=== PATIENT | male | born 1985 | race Caucasian/White ===

== ENCOUNTER 2018-01-28 12:07 | Emergency (ER) | payer SELFPAY ==
[2018-01-28] MEDS ORDERED: SMZ./TMP. 800/160 MG TABLET ONE (12:51)
[2018-01-28] MEDS ORDERED: CLINDAMYCIN HCL 150 MG CAP ONE (12:51)
--- NOTE | 2018-01-28 12:56 | EDPHYS ---
Physician Documentation [facility] Name: Milton Alfaro Jr Age: 32 yrs Sex: Male : 1985 Arrival Date: 01/28/2018 Time: 12:10 Bed 15 Private MD: None, None ED Physician Tereso Ge HPI: 01/28 12:43 This 32 yrs old Male presents to ER via Ambulatory with complaints of Eye kav Swelling. 12:43 to the left eye, caused by an unknown mechanism, "...recent exposure to impetigo". kav Onset: The symptoms/episode began/occurred acutely, 1 day(s) ago. Aggravated by opening eye, rubbing, Light sensitive Alleviated by nothing. Associated signs and symptoms: Pertinent positives: None. Patient does not utilize any form of vision correction. Severity of symptoms: At their worst the symptoms were moderate just prior to arrival, in the emergency department the symptoms are unchanged. The patient has not experienced similar symptoms in the past. The patient has not recently seen a physician. pt presents with chief c/o acute onset of left periorbital area . 12:51 No proptosis, normal vision, normal pupil reflexes, no conjunctival injection, no cells kav and flare, no limitation or pain on eye movement, no chemosis, no papilledema. Historical: - Allergies: 12:32 No Known Allergies; aj - Home Meds: 12:32 None [Active]; aj - PMHx: 12:32 None; aj - PSHx: 12:32 None; aj - Immunization history:: Last tetanus immunization: up to date. - Social history:: Smoking status: Patient/guardian denies using tobacco. - Family history:: not pertinent. - Ebola Screening: : No symptoms or risks identified at this time. - Hospitalizations: : No recent hospitalization is reported. - History obtained from: significant other. ROS: 12:48 Constitutional: Negative for fever, chills, and weight loss, Eyes: Negative for injury, kav pain, redness, and discharge, ENT: Negative for injury, pain, and discharge, Neck: Negative for injury, pain, and swelling, Cardiovascular: Negative for chest pain, palpitations, and edema, Respiratory: Negative for shortness of breath, cough, wheezing, and pleuritic chest pain, Abdomen/GI: Negative for abdominal pain, nausea, vomiting, diarrhea, and constipation, Back: Negative for injury and pain, : Negative for injury, bleeding, discharge, and swelling, MS/Extremity: Negative for injury and deformity, Neuro: Negative for headache, weakness, numbness, tingling, and seizure, Psych: Negative for depression, anxiety, suicide ideation, homicidal ideation, and hallucinations, Allergy/Immunology: Negative for hives, rash, and allergies, Endocrine: Negative for neck swelling, polydipsia, polyuria, polyphagia, and marked weight changes, Hematologic/Lymphatic: Negative for swollen nodes, abnormal bleeding, and unusual bruising. 12:48 Skin: Positive for erythema, swelling. Exam: 12:48 Visual Acuity: Visual acuity is within normal limits. kav 12:48 Constitutional: This is a well developed, well nourished patient who is awake, alert, and in no acute distress. Head/Face: Normocephalic, atraumatic. Eyes: Pupils equal round and reactive to light, extra-ocular motions intact. Lids and lashes normal. Conjunctiva and sclera are non-icteric and not injected. Cornea within normal limits. Periorbital areas with no swelling, redness, or edema. ENT: Nares patent. No nasal discharge, no septal abnormalities noted. Tympanic membranes are normal and external auditory canals are clear. Oropharynx with no redness, swelling, or masses, exudates, or evidence of obstruction, uvula midline. Mucous membranes moist. Neck: Trachea midline, no thyromegaly or masses palpated, and no cervical lymphadenopathy. Supple, full range of motion without nuchal rigidity, or vertebral point tenderness. No Meningismus. Chest/axilla: Normal chest wall appearance and motion. Nontender with no deformity. No lesions are appreciated. Cardiovascular: Regular rate and rhythm with a normal S1 and S2. No gallops, murmurs, or rubs. Normal PMI, no JVD. No pulse deficits. Respiratory: Lungs have equal breath sounds bilaterally, clear to auscultation and percussion. No rales, rhonchi or wheezes noted. No increased work of breathing, no retractions or nasal flaring. Abdomen/GI: Soft, non-tender, with normal bowel sounds. No distension or tympany. No guarding or rebound. No evidence of tenderness throughout. Back: No spinal tenderness. No costovertebral tenderness. Full range of motion. Male : Normal genitalia with no discharge or lesions. MS/ Extremity: Pulses equal, no cyanosis. Neurovascular intact. Full, normal range of motion. Neuro: Awake and alert, GCS 15, oriented to person, place, time, and situation. Cranial nerves II-XII grossly intact. Motor strength 5/5 in all extremities. Sensory grossly intact. Cerebellar exam normal. Normal gait. Psych: Awake, alert, with orientation to person, place and time. Behavior, mood, and affect are within normal limits. 12:48 Skin: cellulitis, that is mild, irregular. Vital Signs: 12:32 BP 120 / 84; Pulse 80; Resp 16; Temp 98.0; Pulse Ox 99% on R/A; Weight 90.72 kg; Height aj 5 ft. 9 in. (175.26 cm); 12:32 Body Mass Index 29.53 (90.72 kg, 175.26 cm) aj MDM: 12:35 Medical screening is not applicable. [facility] 12:48 Data reviewed: vital signs, nurses notes. [facility] 01/28 13:21 Order name: Ice pack; Complete Time: 13:21 [facility] Administered Medications: 12:52 Drug: Bactrim (160 mg-800 mg (DS) 1 tablet Route: PO; [facility] 13:20 Follow up: Response: No adverse reaction [facility] 12:52 Drug: Clindamycin 300 mg Route: PO; [facility] 13:20 Follow up: Response: No adverse reaction [facility] 13:20 Drug: ERYTHromycin Ointment 1 application Route: Ophthalmic; Site: left eye; [facility] 13:20 Follow up: Response: Medication administered at discharge. [facility] Disposition: 22:09 Co-signature as Attending Physician, Tereso Ge MD I agree with the assessment and kdr plan of care. Disposition: 01/28/18 12:55 Discharged to Home. Impression: Unspecified inflammation of eyelid. - Condition is Stable. - Discharge Instructions: Periorbital Cellulitis. - Prescriptions for Augmentin 875- 125 mg Oral Tablet - take 1 tablet by ORAL route every 12 hours for 10 days; 20 tablet. Erythromycin 5 mg/gram (0.5 %) Ophthalmic Ointment - apply 1 centimeter by OPHTHALMIC route 2-3 times daily for 7 days; 1 tube. - Medication Reconciliation Form, Thank You Letter, Antibiotic Education, Prescription Opioid Use form. - Follow up: Private Physician; When: 5 - 6 days; Reason: If symptoms return, Recheck today's complaints, Continuance of care, Re-evaluation by your physician. - Problem is new. - Symptoms have improved. - Notes: wash tub/shower with 1:10 bleach:water solution. wash all linen and towels in hot water with bleach f/u with opthalmalogist in 2-3 days if s/s do not improved Signatures: Kiara Melgar, RN RN Tereso Mujica MD MD kdr Bonnie Lozada, SALES ORDER ADMINISTRATOR SALES ORDER ADMINISTRATOR Olivia Burton RN RN jl7 Corrections: (The following items were deleted from the chart) 13:23 12:55 01/28/2018 12:55 Discharged to Home. Impression: Unspecified inflammation of jl7 eyelid. Condition is Stable. Forms are Medication Reconciliation Form, Thank You Letter, Antibiotic Education, Prescription Opioid Use. Follow up: Private Physician; When: 5 - 6 days; Reason: If symptoms return, Recheck today's complaints, Continuance of care, Re-evaluation by your physician. Problem is new. Symptoms have improved. kayokasta
--- NOTE | 2018-01-28 12:56 | ER ---
Nurse's Notes [facility] Name: Milton Alfaro Jr Age: 32 yrs Sex: Male : 1985 Arrival Date: 01/28/2018 Time: 12:10 Bed 15 Private MD: None, None Diagnosis: Unspecified inflammation of eyelid Presentation: 01/28 12:30 Presenting complaint: Patient states: Left peroborbital redness and inflammation that aj started yesterday. Patient reports starting Bactrim yesterday and taking 2 doses. Transition of care: patient was not received from another setting of care. Onset of symptoms was January 28, 2018. Care prior to arrival: None. 12:30 Method Of Arrival: Ambulatory aj 12:30 Acuity: SANDY 3 aj 12:30 Risk Assessment: Do you want to hurt yourself or someone else? Patient reports no jl7 desire to harm self or others. Initial Sepsis Screen: Does the patient meet any 2 criteria? No. Patient's initial sepsis screen is negative. Does the patient have a suspected source of infection? No. Patient's initial sepsis screen is negative. Triage Assessment: 12:32 General: Appears in no apparent distress. comfortable, Behavior is calm, cooperative, aj appropriate for age. Pain: Complains of pain in left eye. EENT: Lid(s) swelling to left lower and upper lid with redness. Neuro: Level of Consciousness is awake, alert, obeys commands, Oriented to person, place, time, situation, Appropriate for age. Respiratory: Airway is patent Respiratory effort is even, unlabored, Respiratory pattern is regular, symmetrical. Derm: Skin is intact, is healthy with good turgor, Skin is pink, warm \T\ dry. normal. Historical: - Allergies: 12:32 No Known Allergies; aj - Home Meds: 12:32 None [Active]; aj - PMHx: 12:32 None; aj - PSHx: 12:32 None; aj - Immunization history:: Last tetanus immunization: up to date. - Social history:: Smoking status: Patient/guardian denies using tobacco. - Family history:: not pertinent. - Ebola Screening: : No symptoms or risks identified at this time. - Hospitalizations: : No recent hospitalization is reported. - History obtained from: significant other. Screenin:40 Abuse screen: Denies threats or abuse. Denies injuries from another. Nutritional jl7 screening: No deficits noted. Tuberculosis screening: No symptoms or risk factors identified. Fall Risk None identified. Assessment: 12:40 General: Appears in no apparent distress. uncomfortable, Behavior is calm, cooperative, jl7 appropriate for age. Pain: Complains of pain in left eye Pain currently is 10 out of 10 on a pain scale. Neuro: Level of Consciousness is awake, alert, obeys commands, Oriented to person, place, time, situation. Cardiovascular: Patient's skin is warm and dry. Respiratory: Airway is patent Respiratory effort is even, unlabored, Respiratory pattern is regular, symmetrical. EENT: Eyes Swelling noted to left eye. Superficial abrasions noted around face.. Derm: Skin is pink, warm \T\ dry. 13:21 Reassessment: Ice pack applied to left eye. jl7 Vital Signs: 12:32 BP 120 / 84; Pulse 80; Resp 16; Temp 98.0; Pulse Ox 99% on R/A; Weight 90.72 kg; Height aj 5 ft. 9 in. (175.26 cm); 12:32 Body Mass Index 29.53 (90.72 kg, 175.26 cm) aj ED Course: 12:10 Patient arrived in ED. mr 12:11 None, None is Private Physician. mr 12:31 Triage completed. aj 12:32 Arm band placed on left wrist. Patient placed in an exam room. aj 12:35 Bonnie Lozada FNP is PHCP. kav 12:35 Tereso Ge MD is Attending Physician. kav 12:40 Patient has correct armband on for positive identification. Bed in low position. Call jl7 light in reach. Side rails up X 1. 12:40 No provider procedures requiring assistance completed. Patient did not have IV access jl7 during this emergency room visit. 12:43 Olivia Arnold RN is Primary Nurse. jl7 Administered Medications: 12:52 Drug: Bactrim (160 mg-800 mg (DS) 1 tablet Route: PO; jl7 13:20 Follow up: Response: No adverse reaction jl7 12:52 Drug: Clindamycin 300 mg Route: PO; jl7 13:20 Follow up: Response: No adverse reaction jl7 13:20 Drug: ERYTHromycin Ointment 1 application Route: Ophthalmic; Site: left eye; jl7 13:20 Follow up: Response: Medication administered at discharge. jl7 Outcome: 12:55 Discharge ordered by . hernando 13:21 Discharged to home ambulatory. jl7 13:21 Condition: stable 13:21 Discharge instructions given to patient, Instructed on discharge instructions, follow up and referral plans. medication usage, Demonstrated understanding of instructions, follow-up care, medications, Prescriptions given X 2. 13:23 Patient left the ED. jl7 Signatures: Kiara Melgar, RN Bonnie Nash, LOOP TACKER LOOP TACKER Renae Lui Jahala, RN RN jl7
[2018-01-28] MEDS ORDERED: ERYTHROMYCIN 3.5GM OPTH OINT EACH EYE ONE (13:00)
== END 2018-01-28 13:23 | disposition home or self-care (01) ==
LOC: ER 12:07
DX: H01.9 Unspecified inflammation of eyelid (principal)
CPT/HCPCS: 99283

== ENCOUNTER 2018-02-23 12:21 | Emergency (ER) | payer SELFPAY ==
--- NOTE | 2018-02-23 13:49 | ER ---
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 Areas are "everywhere.". Transition of care: patient was not received from another setting of care. Onset of symptoms was February 20, 2018. Care prior to arrival: None. 12:32 Method Of Arrival: Ambulatory sv 12:32 Acuity: SANDY 4 sv Triage Assessment: 12:32 General: Appears uncomfortable, Behavior is calm, cooperative, appropriate for age. sv Pain: Complains of pain in "all over" Pain currently is 2 out of 10 on a pain scale. Quality of pain is described as itchy. Neuro: Level of Consciousness is awake, alert, obeys commands, Oriented to person, place, time, situation, Moves all extremities. Full function Gait is steady, Speech is normal. Respiratory: Respiratory effort is even, unlabored, Respiratory pattern is regular, symmetrical. GI: No signs and/or symptoms were reported involving the gastrointestinal system. : No signs and/or symptoms were reported regarding the genitourinary system. Derm: Reports itching, poison tex "all over my body". Musculoskeletal: Range of motion: intact in all extremities. Historical: - Allergies: 12:33 No Known Allergies; sv - Home Meds: 12:33 None [Active]; sv - PMHx: 12:33 None; sv - PSHx: 12:33 None; sv - Immunization history:: Adult Immunizations up to date. - Social history:: Smoking status: Patient/guardian denies using tobacco. - Ebola Screening: : No symptoms or risks identified at this time. Screenin:31 Abuse screen: Denies threats or abuse. Denies injuries from another. Nutritional aj screening: No deficits noted. Tuberculosis screening: No symptoms or risk factors identified. Fall Risk None identified. Assessment: 13:31 General: Appears in no apparent distress. uncomfortable, Behavior is calm, cooperative, aj appropriate for age. Pain: Denies pain. Neuro: Level of Consciousness is awake, alert, obeys commands, Oriented to person, place, time, situation, Appropriate for age. Respiratory: Airway is patent Respiratory effort is even, unlabored, Respiratory pattern is regular, symmetrical. Derm: Skin is pink, warm \\T\\ dry. Rash noted that is itchy, red, on face, right arm and left arm. Vital Signs: 12:33 BP 104 / 72; Pulse 55; Resp 18; Temp 97.9(TE); Pulse Ox 100% on R/A; Weight 95.25 kg; sv Height 5 ft. 9 in. (175.26 cm); Pain 2/10; 12:33 Body Mass Index 31.01 (95.25 kg, 175.26 cm) sv ED Course: 12:24 Patient arrived in ED. rg4 12:33 Triage completed. sv 12:33 Arm band placed on left wrist. Patient placed in waiting room, Patient notified of wait sv time. 13:13 Martin Robertson MD is Attending Physician. gs 13:17 Kiara Melgar RN is Primary Nurse. aj 13:31 Patient has correct armband on for positive identification. aj 13:31 No provider procedures requiring assistance completed. aj Administered Medications: No medications were administered Outcome: 13:37 Medical screen evaluation completed per provider. Patient declined treatment. aj 13:37 Condition: good 13:37 Following a medical screening exam, the patient was provided information regarding alternative care sites and resources available per registration personnel. 13:48 Discharge ordered by . gs 13:57 Patient left the ED. aj Signatures: Lexus Byers RN RN sv Myers, Amanda, RN RN aj Garcia, Rubi rg4 Martin Robertson MD MD Corrections: (The following items were deleted from the chart) 12:35 12:32 Presenting complaint: Patient states: poison tex exposure started 2 days ago sv after cleaning [employer]. sv 12:37 12:33 Pulse 55bpm; Resp 18bpm; Pulse Ox 100% RA; Temp 97.9F Temporal; 95.25 kg; Height sv 5 ft. 9 in.; BMI: 31.0; Pain 2/10; sv 12:51 12:33 Arm band placed on left wrist. sv sv 12:56 12:32 Acuity: SANDY 3 sv sv
--- NOTE | 2018-02-23 13:49 | EDPHYS ---
Physician Documentation [facility] Name: Milton Alfaro Jr Age: 33 yrs Sex: Male : 1985 Arrival Date: 02/23/2018 Time: 12:24 Bed 12 Private MD: ED Physician Martin Robertson HPI: 02/23 13:45 This 33 yrs old Male presents to ER via Ambulatory with complaints of POISON gs BHARGAVI. 13:45 The rash is located on the dorsal aspect of right forearm. The rash is located on the gs dorsal aspect of left forearm. The rash can be described as papular. Onset: The symptoms/episode began/occurred 2 day(s) ago. Associated signs and symptoms: Pertinent positives: itching, Pertinent negatives: difficulty breathing, fever, swelling of lips, swelling of throat, swelling of tongue. Severity of symptoms: At their worst the symptoms were moderate in the emergency department the symptoms are unchanged. The patient has experienced similar episodes in the past, several times. Historical: - Allergies: 12:33 No Known Allergies; sv - Home Meds: 12:33 None [Active]; sv - PMHx: 12:33 None; sv - PSHx: 12:33 None; sv - Immunization history:: Adult Immunizations up to date. - Social history:: Smoking status: Patient/guardian denies using tobacco. - Ebola Screening: : No symptoms or risks identified at this time. ROS: 13:45 All other systems are negative. gs Exam: 13:45 Head/Face: Normocephalic, atraumatic. Eyes: Pupils equal round and reactive to light, gs extra-ocular motions intact. Lids and lashes normal. Conjunctiva and sclera are non-icteric and not injected. Cornea within normal limits. Periorbital areas with no swelling, redness, or edema. ENT: Nares patent. No nasal discharge, no septal abnormalities noted. Tympanic membranes are normal and external auditory canals are clear. Oropharynx with no redness, swelling, or masses, exudates, or evidence of obstruction, uvula midline. Mucous membranes moist. Neck: Trachea midline, no thyromegaly or masses palpated, and no cervical lymphadenopathy. Supple, full range of motion without nuchal rigidity, or vertebral point tenderness. No Meningismus. Chest/axilla: Normal chest wall appearance and motion. Nontender with no deformity. No lesions are appreciated. Cardiovascular: Regular rate and rhythm with a normal S1 and S2. No gallops, murmurs, or rubs. Normal PMI, no JVD. No pulse deficits. Respiratory: Lungs have equal breath sounds bilaterally, clear to auscultation and percussion. No rales, rhonchi or wheezes noted. No increased work of breathing, no retractions or nasal flaring. Abdomen/GI: Soft, non-tender, with normal bowel sounds. No distension or tympany. No guarding or rebound. No evidence of tenderness throughout. Back: No spinal tenderness. No costovertebral tenderness. Full range of motion. MS/ Extremity: Pulses equal, no cyanosis. Neurovascular intact. Full, normal range of motion. Neuro: Awake and alert, GCS 15, oriented to person, place, time, and situation. Cranial nerves II-XII grossly intact. Motor strength 5/5 in all extremities. Sensory grossly intact. Cerebellar exam normal. Normal gait. 13:45 Constitutional: The patient appears alert, awake. 13:45 Skin: rash a mild rash is noted, rash can be described as macular, papular, contact dermatitis, on the dorsal aspect of left forearm and dorsal aspect of right forearm, very mild. Vital Signs: 12:33 BP 104 / 72; Pulse 55; Resp 18; Temp 97.9(TE); Pulse Ox 100% on R/A; Weight 95.25 kg; sv Height 5 ft. 9 in. (175.26 cm); Pain 2/10; 12:33 Body Mass Index 31.01 (95.25 kg, 175.26 cm) MDM: 13:22 Patient medically screened. 13:45 Data reviewed: vital signs, nurses notes. gs Administered Medications: No medications were administered Disposition: 13:47 contact dermatitis. Disposition: 02/23/18 13:48 Discharged to Home. Impression: Encounter for screening, unspecified. - Condition is Stable. - Medication Reconciliation Form, Thank You Letter, Antibiotic Education, Prescription Opioid Use form. Signatures: Lexus Byers RN RN sv Myers, Amanda, RN RN aj Starr, Gregory, MD MD Corrections: (The following items were deleted from the chart) 13:57 13:48 02/23/2018 13:48 Discharged to Home. Impression: Encounter for screening, aj unspecified. Condition is Stable. Forms are Medication Reconciliation Form, Thank You Letter, Antibiotic Education, Prescription Opioid Use. gs
== END 2018-02-23 13:57 | disposition home or self-care (01) ==
LOC: ER 12:21
DX: L23.7 Allergic contact dermatitis due to plants, except food (principal)
CPT/HCPCS: 99281

== ENCOUNTER 2018-08-04 13:53 | Inpatient (IN) | payer SELFPAY ==
--- OUTSIDE RECORDS SUMMARY | 2018-08-04 13:57 | XMS REPORT ---
:1985 Author Organization [facility] Address [address] [place] [address] Dr. Wesley [address] [place] [id number] Care Team Providers Name Role Phone Unavailable Unavailable Unavailable Problems This patient has no known problems. Allergies, Adverse Reactions, Alerts This patient has no known allergies or adverse reactions. Medications This patient has no known medications.
[2018-08-04] MEDS ORDERED: MORPHINE 4 MG/ML SYR ONE (15:47)
[2018-08-04] MEDS ORDERED: ONDANSETRON 4 MG/2 ML VIAL ONE (15:47)
[2018-08-04 16:05] LABS: Absolute Lymphocytes (CBC) 0.9 K/uL (0.7-4.9); Absolute Monocytes 1.2 K/uL (0.1-1.3); Absolute Neutrophil 12.6 K/uL (1.8-8.0); Basophils % 0.4 % (0-1.3); Hematocrit 40.5 % (39.6-49.0); Lymphocytes % 5.7 % (15.3-44.8); MCH 29.6 pg (27.0-35.0); MCV 86.6 fL (80-100); MPV 9.7 fL (7.6-11.3); Monocytes % 8.1 % (3.3-12.3); RBC Red Blood Cell Count 4.68 M/uL (4.33-5.43)
[2018-08-04] MEDS ORDERED: KETOROLAC 30 MG/ML INJ ONE (16:55)
[2018-08-04 19:16] LABS: Potassium 4.1 mmol/L (3.5-5.1)
--- NOTE | 2018-08-04 20:28 | RAD REPORT ---
EXAM DESCRIPTION: CT - Forearm Right W Con - 08/04/2018 7:58 pm CLINICAL HISTORY: Right arm pain and swelling COMPARISON: None. TECHNIQUE: Computed axial tomography of right forearm obtained. 50 cc Isovue-300 administered intrav enously. All CT scans are performed using dose optimization technique as appropriate and may include automated exposure control or mA/KV adjustment according to patient size. FINDINGS: An 18 millimeter low-density fluid collection is present within an the ulnar aspect of the distal forearm within the subcutaneous tissues. The fluid collection extends proximally within the u lnar soft tissues measuring approximately 50 x 6 millimeters. This all likely represents an abscess. There is extensive edema within the subcutaneous tissues compatible with a cellulitis. No bony destructive lesion is seen. IMPRESSION: 18 millimeter abscess within the ulnar subcutaneous tissues of the distal forearm. An ab scess tract extends proximally within the subcutaneous tissues measuring 50 x 6 millimeters
--- NOTE | 2018-08-04 20:46 | EDPHYS ---
Physician Documentation [facility] Name: Milton Alfaro Jr Age: 33 yrs Sex: Male : 1985 Arrival Date: 08/04/2018 Time: 13:53 Bed 27 Private MD: ED Physician Aurelio Antonio HPI: 08/04 15:05 This 33 yrs old Male presents to ER via Ambulatory with complaints of Abscess.jmm 15:05 the patient presents with a swollen area of the right arm. Onset: The symptoms/episode jmm began/occurred gradually, 3 day(s) ago. Possible cause(s): unknown. Associated signs and symptoms: Pertinent positives: drainage, Pertinent negatives: fever. This is a 33 year old male with no chronic medical conditions that presents tot he ED with with forearm swelling. Patient states having drainage. Patient has taken oral antibiotics a friend of his gave him for 2 days. Denies fever. . Historical: - Allergies: 14:09 No Known Drug Allergies; tw2 - Home Meds: 14:09 None [Active]; tw2 - PMHx: 14:09 None; tw2 - PSHx: 14:09 None; tw2 - Immunization history:: Last tetanus immunization: up to date. - Social history:: Smoking status: Patient/guardian denies using tobacco, Patient uses street drugs, marijuana. - Ebola Screening: : Patient denies travel to an Ebola-affected area in the 21 days before illness onset. ROS: 15:05 Constitutional: Negative for fever, chills, and weight loss, Eyes: Negative for injury, jmm pain, redness, and discharge, ENT: Negative for injury, pain, and discharge, Neck: Negative for injury, pain, and swelling, Cardiovascular: Negative for chest pain, palpitations, and edema, Respiratory: Negative for shortness of breath, cough, wheezing, and pleuritic chest pain, Abdomen/GI: Negative for abdominal pain, nausea, vomiting, diarrhea, and constipation. 15:05 Skin: Positive for erythema. 15:05 All other systems are negative. Exam: 19:23 Constitutional: This is a well developed, well nourished patient who is awake, alert, jmm and in no acute distress. Head/Face: atraumatic. Eyes: EOMI, no conjunctival erythema appreciated ENT: Moist Mucus Membranes Neck: Trachea midline, Supple Chest/axilla: Normal chest wall appearance and motion. Cardiovascular: Regular rate and rhythm. No edema appreciated Respiratory: Normal respirations, no respiratory distress appreciated Abdomen/GI: Non distended, soft 19:23 Musculoskeletal/extremity: FROM appreciated to the right wrist, painful, full radial pulse, compartments are soft, NVI. 19:23 Skin: erythema and induration appreciated to the right forearm, worse distally, TTP. 19:23 Neuro: Orientation: is normal, Mentation: is normal, Memory: is normal, Gait: is steady. 19:23 Psych: Behavior/mood is pleasant, cooperative. Vital Signs: 14:08 BP 123 / 82; Pulse 94; Resp 18; Temp 97.8(TE); Pulse Ox 100% on R/A; Pain 10/10; tw2 16:24 BP 104 / 84; Pulse 78; Resp 18; Temp 98.7; Pulse Ox 100% on R/A; Pain 4/10; mg2 17:30 BP 110 / 65; Pulse 78; Resp 18; Pulse Ox 100% on R/A; Pain 0/10; mg2 18:30 BP 111 / 65; Pulse 80; Resp 17; Temp 98.8(O); Pulse Ox 100% on R/A; Pain 0/10; mg2 20:23 BP 114 / 68; Pulse 80; Resp 18; Temp 98.8; Pulse Ox 100% on R/A; Pain 4/10; mg2 MDM: 15:05 Patient medically screened. [facility] 20:43 Data reviewed: vital signs, nurses notes. Counseling: I had a detailed discussion with [facility] the patient and/or guardian regarding: the historical points, exam findings, and any diagnostic results supporting the discharge/admit diagnosis, radiology results, the need for further work-up and treatment in the hospital. ED course: I discussed the patient with Dr. Serrano whom will consult on admission. I discussed the patient with Dr. Arriaza whom accepted admission. 08/04 15:11 Order name: CBC with Diff [facility] 08/04 15:11 Order name: BMP [facility] 08/04 15:11 Order name: Lactate [facility] 08/04 15:11 Order name: Procalcitonin [facility] 08/04 15:11 Order name: Blood Culture Adult (2) [facility] 08/04 16:07 Order name: CBC with Automated Diff; Complete Time: 16:09 EDMS 12 16:22 Order name: Lactate; Complete Time: 16:35 EDMS 08/04 16:34 Order name: Procalcitonin; Complete Time: 16:35 EDMS 08/04 19:16 Order name: Basic Metabolic Panel; Complete Time: 19:17 EDMS 08/04 20:29 Order name: CT; Complete Time: 20:29 EDMS 08/04 15:11 Order name: Saline Lock; Complete Time: 15:55 [facility] Administered Medications: 15:54 Drug: Zofran 4 mg Route: IVP; Site: left antecubital; mg2 16:40 Follow up: Response: No adverse reaction; Marked relief of symptoms mg2 15:55 Drug: morphine 4 mg Route: IVP; Site: left antecubital; mg2 16:40 Follow up: Response: No adverse reaction; Pain is decreased mg2 16:49 Drug: TORadol 30 mg Route: IVP; Site: left antecubital; mg2 18:48 Follow up: Response: No adverse reaction; Marked relief of symptoms mg2 20:55 Drug: vancoMYCIN 1 grams Route: IVPB; Infused Over: 2 hrs; Site: left antecubital; mg2 21:12 Follow up: Response: No adverse reaction; IV Status: Infusion continued upon admission mg2 20:56 Drug: fentaNYL (PF) 50 mcg Route: IVP; Site: left antecubital; mg2 21:11 Follow up: Response: No adverse reaction; Marked relief of symptoms mg2 Disposition: 08/05 07:46 Co-signature as Attending Physician, Aurelio Antonio MD. rn Disposition: 08/04/18 20:45 Hospitalization ordered by Krystyna Arriaza for Observation. Preliminary diagnosis are Forearm Abscess, Forearm Cellulitis. - Bed requested for Telemetry/MedSurg (observation). - Status is Observation. mg2 - Condition is Stable. - Problem is new. - Symptoms are unchanged. UTI on Admission? No Signatures: Dispatcher [employer] [facility] Wanda Arreguin RN RN mw Mickail, Joel, PA PA jmm Nieto, Roman, MD MD rn Wise, Tara, RN RN tw2 Miguel Reyes RN RN mg2 Corrections: (The following items were deleted from the chart) 08/04 20:51 20:45 Hospitalization Ordered by Krystyna Arriaza MD for Observation. Preliminary mw diagnosis is Forearm Abscess; Forearm Cellulitis. Bed requested for Telemetry/MedSurg (observation). Status is Observation. Condition is Stable. Problem is new. Symptoms are unchanged. UTI on Admission? No. jmm 21:41 20:51 08/04/2018 20:45 Hospitalization Ordered by Krystyna Arriaza MD for Observation. mg2 Preliminary diagnosis is Forearm Abscess; Forearm Cellulitis. Bed requested for Telemetry/MedSurg (observation). Status is Observation. Condition is Stable. Problem is new. Symptoms are unchanged. UTI on Admission? No. mw
--- NOTE | 2018-08-04 20:46 | ER ---
Nurse's Notes [facility] Name: Milton Alfaro Jr Age: 33 yrs Sex: Male : 1985 Arrival Date: 08/04/2018 Time: 13:53 Bed 27 Private MD: Diagnosis: Forearm Abscess;Forearm Cellulitis Presentation: 08/04 14:07 Presenting complaint: Patient states: i have this abscess 3 days ago on my right wrist, tw2 i had some bactrim so i took that but it aint better, the antibiotics made it bust open and green shit came out. Transition of care: patient was not received from another setting of care. Onset of symptoms was August 04, 2018. Risk Assessment: Do you want to hurt yourself or someone else? Patient reports no desire to harm self or others. Initial Sepsis Screen: Does the patient meet any 2 criteria? No. Patient's initial sepsis screen is negative. Does the patient have a suspected source of infection? Yes: Skin breakdown/wound. Care prior to arrival: None. 14:07 Method Of Arrival: Ambulatory tw2 14:07 Acuity: SANDY 3 tw2 Historical: - Allergies: 14:09 No Known Drug Allergies; tw2 - Home Meds: 14:09 None [Active]; tw2 - PMHx: 14:09 None; tw2 - PSHx: 14:09 None; tw2 - Immunization history:: Last tetanus immunization: up to date. - Social history:: Smoking status: Patient/guardian denies using tobacco, Patient uses street drugs, marijuana. - Ebola Screening: : Patient denies travel to an Ebola-affected area in the 21 days before illness onset. Screenin:22 Abuse screen: Denies threats or abuse. Denies injuries from another. Nutritional mg2 screening: No deficits noted. Tuberculosis screening: No symptoms or risk factors identified. Fall Risk IV access (20 points). Assessment: 16:21 General: Appears in no apparent distress. uncomfortable, Behavior is calm, cooperative. mg2 Pain: Complains of pain in right arm Pain currently is 5 out of 10 on a pain scale. Quality of pain is described as aching, Pain began gradually, 2-3 days ago. Is intermittent. Neuro: Level of Consciousness is awake, alert, obeys commands, Oriented to person, place, time, situation. Cardiovascular: Capillary refill < 3 seconds Patient's skin is warm and dry. Respiratory: Airway is patent Respiratory effort is even, unlabored, Respiratory pattern is regular, symmetrical. GI: No signs and/or symptoms were reported involving the gastrointestinal system. : No signs and/or symptoms were reported regarding the genitourinary system. EENT: No signs and/or symptoms were reported regarding the EENT system. Derm: Abscess located on right arm is golf ball sized, has no drainage, is hot to touch, is red, is raised. Musculoskeletal: Circulation, motion, and sensation intact. Capillary refill < 3 seconds, Swelling present in right arm. 19:50 Reassessment: Patient appears in no apparent distress at this time. patient sent to ct mg2 scan. Vital Signs: 14:08 BP 123 / 82; Pulse 94; Resp 18; Temp 97.8(TE); Pulse Ox 100% on R/A; Pain 10/10; tw2 16:24 BP 104 / 84; Pulse 78; Resp 18; Temp 98.7; Pulse Ox 100% on R/A; Pain 4/10; mg2 17:30 BP 110 / 65; Pulse 78; Resp 18; Pulse Ox 100% on R/A; Pain 0/10; mg2 18:30 BP 111 / 65; Pulse 80; Resp 17; Temp 98.8(O); Pulse Ox 100% on R/A; Pain 0/10; mg2 20:23 BP 114 / 68; Pulse 80; Resp 18; Temp 98.8; Pulse Ox 100% on R/A; Pain 4/10; mg2 ED Course: 13:53 Patient arrived in ED. as 14:08 Triage completed. tw2 14:08 Arm band placed on. tw2 14:58 Alfonzo Ford PA is PHCP. [facility] 14:58 Aurelio Antonio MD is Attending Physician. [facility] 15:19 Miguel Reyes RN is Primary Nurse. mg2 16:23 Patient has correct armband on for positive identification. Pulse ox on. NIBP on. mg2 16:23 No provider procedures requiring assistance completed. Inserted saline lock: 20 gauge mg2 in left antecubital area, using aseptic technique. Blood collected. 18:21 Radiology exam delayed due to lab results not completed at this time. (BUN/Creatinine). mw3 18:31 Radiology exam delayed due to lab results not completed at this time. (BUN/Creatinine). mw3 19:15 Radiology exam delayed due to lab results not completed at this time. (BUN/Creatinine). mw3 19:[address] nj 19:58 CT completed. Patient tolerated procedure well. Patient moved back from CT. nj 20:44 Krystyna Arriaza MD is Hospitalizing Provider. m 21:10 Patient admitted, IV remains in place. mg2 Administered Medications: 15:54 Drug: Zofran 4 mg Route: IVP; Site: left antecubital; mg2 16:40 Follow up: Response: No adverse reaction; Marked relief of symptoms mg2 15:55 Drug: morphine 4 mg Route: IVP; Site: left antecubital; mg2 16:40 Follow up: Response: No adverse reaction; Pain is decreased mg2 16:49 Drug: TORadol 30 mg Route: IVP; Site: left antecubital; mg2 18:48 Follow up: Response: No adverse reaction; Marked relief of symptoms mg2 20:55 Drug: vancoMYCIN 1 grams Route: IVPB; Infused Over: 2 hrs; Site: left antecubital; mg2 21:12 Follow up: Response: No adverse reaction; IV Status: Infusion continued upon admission mg2 20:56 Drug: fentaNYL (PF) 50 mcg Route: IVP; Site: left antecubital; mg2 21:11 Follow up: Response: No adverse reaction; Marked relief of symptoms mg2 Outcome: 20:45 Decision to Hospitalize by Provider. [facility] 21:10 Admitted to Med/surg accompanied by tech, via wheelchair, room 204, with chart, Report mg2 called to YANA Ndiaye 21:10 Condition: stable 21:10 Instructed on the need for admit. 21:41 Patient left the ED. mg2 Signatures: Alfonzo Ford PA PA jmm Martinez, Amelia as Wise, Tara, RN RN tw2 Sanjiv Goss Michele, RN RN mg2 Neris Rosenberg mw3 Corrections: (The following items were deleted from the chart) 21:01 20:23 BP 114 / 68; Pulse 80bpm; Resp 18bpm; Pulse Ox 100% RA; Pain 4/10; mg2 mg2
[2018-08-04] MEDS ORDERED: VANCOMYCIN 1 GM/250 ML BAG ONE (20:48)
[2018-08-04] MEDS ORDERED: FENTANYL CITR 100 MCG/2 ML ONE (20:53)
[2018-08-04] MEDS: NA CHLORIDE 0.9% 1,000 ML IV SCH (22:04)
[2018-08-04] MEDS: MORPHINE 4 MG/ML SYR IV PRN (22:09)
[2018-08-04] MEDS ORDERED: CHLORHEXIDINE GLUCO 4% 120 ML TOP SCH (23:45)
[2018-08-05] MEDS ORDERED: VANCOMYCIN 750 MG in NA CHLORIDE 0.9% 150 ML IVPB ONE (00:15)
[2018-08-05] MEDS ORDERED: VANCOMYCIN 1 GM/VIAL ONE (00:32)
[2018-08-05] MEDS ORDERED: NA CHLORIDE 0.9% 250 ML ONE (00:38)
[2018-08-05] MEDS: TEMAZEPAM 15 MG CAP PO PRN (00:47)
[2018-08-05 02:01] LABS: Barbiturates NEGATIVE (NEGATIVE); Benzodiazepines NEGATIVE (NEGATIVE); Cocaine NEGATIVE (NEGATIVE); METHAMPHETAM POSITIVE (NEGATIVE); Methadone NEGATIVE (NEGATIVE); Opiates POSITIVE (NEGATIVE); Phencyclidine NEGATIVE (NEGATIVE); THC Cannibis POSITIVE (NEGATIVE)
[2018-08-05 02:45] LABS: Urine Bacteria <20 /HPF (NONE SEEN); Urine Culture Reflex Order NOT NEEDED; Urine RBC NONE SEEN /HPF (NONE SEEN)
[2018-08-05 02:51] LABS: Urine Appearance CLEAR; Urine Bilirubin NEGATIVE (NEG); Urine Blood NEGATIVE (NEG); Urine Color YELLOW; Urine Glucose NEGATIVE (NEG); Urine Protein NEGATIVE (NEG); Urine Specific Gravity >=1.030 (1.005-1.030); Urine Urobilinogen 0.2 mg/dL (0.2-1.0); Urine pH 6.5 (5.0-7.0)
[2018-08-05] MEDS: MORPHINE 4 MG/ML SYR IV PRN ×2 (04:07→09:25)
[2018-08-05 05:27] LABS: Absolute Lymphocytes (CBC) 1.5 K/uL (0.7-4.9); Absolute Neutrophil 8.5 K/uL (1.8-8.0); Basophils % 0.6 % (0-1.3); Eosinophils % 5.5 % (0-4.4); Lymphocytes % 12.6 % (15.3-44.8); MCH 29.2 pg (27.0-35.0); MCV 86.2 fL (80-100); MPV 9.7 fL (7.6-11.3); Monocytes % 8.8 % (3.3-12.3); RBC Red Blood Cell Count 4.52 M/uL (4.33-5.43)
[2018-08-05 05:42] LABS: Potassium 4.3 mmol/L (3.5-5.1)
[2018-08-05] MEDS: INFLUENZA VACCINE (for 3y+) 0.5 ML DOSE IMVAC ONE ×2 (06:00→09:13)
[2018-08-05] MEDS: MUPIROCIN 2% OINT 22GM TUBE TOP SCH (09:15)
[2018-08-05] MEDS: NA CHLORIDE 0.9% 1,000 ML IV SCH (09:17)
--- NOTE | 2018-08-05 09:59 | P.HP ---
Certification for Inpatient Patient admitted to: Inpatient With expected LOS: >2 Midnights Patient will require the following post-hospital care: None Practitioner: I am a practitioner with admitting privileges, knowledge of patient current condition, hospital course, and medical plan of care. Services: Services provided to patient in accordance with Admission requirements found in Title 42 Section 412.3 of the Code of Federal Regulations Patient History Date of Service: 08/04/18 Reason for admission: Abscess of the hand/arm History of Present Illness: Patient is a 33-year-old gentleman who came into the hospital because he had an abscess on his right wrist. The abscess has been draining for over the last 24 hr but is totally stopped. His right arm is quite swollen. Her his came into the hospital for incision and debridement. The felt uncomfortable doing it in the emergency room so they contacted hand surgery. Plan to go to the OR in the morning. Patient has history of polysubstance abuse. Patient used to use intravenous heroin. patient had been on Bactrim the last couple of days. However he was not getting any relief and he came into the hospital. He denies any significant medical history. He has had prior treatment for staph infection. He said at that time it was MRSA. We will continue with IV vancomycin and may use clindamycin with antibiotics. Await culture results. Allergies No Known Allergies Allergy (Verified 08/04/18 22:02) Home Medications: NK [No Home Meds] 08/04/18 - Past Medical/Surgical History Has patient received pneumonia vaccine in the past: No Diabetic: No Past Medical History: Patient denies medical history Past Surgical History: Patient denies surgical history - Family History Father Family History: Reviewed- Non-Contributory - Social History Smoking Status: Never smoker CD- Drugs: Yes Caffeine use: Yes Place of Residence: Home Review of Systems 10-point ROS is otherwise unremarkable Physical Examination - Vital Signs Temperature: 98.7 F Blood Pressure: 118/56 Pulse: 81 Respirations: 18 Pulse Ox (%): 97 - Physical Exam General: Alert, In no apparent distress, Oriented x3 HEENT: Atraumatic, Normocephalic, PERRLA Neck: Supple, 2+ carotid pulse no bruit, JVD not distended, No Thyromegaly Respiratory: Clear to auscultation bilaterally, Normal air movement Cardiovascular: Regular rate/rhythm, Normal S1 S2, No murmurs Gastrointestinal: Normal bowel sounds, Hypoactive, Soft and benign, Non- distended, No masses, No rebound, No guarding Musculoskeletal: No clubbing, No swelling, No erythema Integumentary: Tenderness/swelling, Erythema Neurological: Normal gait, Normal speech, Normal strength at 5/5 x4 extr, Normal tone, Sensation intact, Cranial nerves 3-12 intact Lymphatics: No axilla or inguinal lymphadenopathy - Studies Laboratory Data (last 24 hrs) 08/04/18 15:40: WBC 15.0 H, Hgb 13.8, Hct 40.5, Plt Count 229 08/04/18 15:11: Sodium 138, Potassium 4.1, BUN 13, Creatinine 1.20, Glucose 86 Assessment & Plan - Problems (Diagnosis) (1) Hand abscess Current Visit: Yes Status: Acute (2) Abscess of wrist Current Visit: Yes Status: Acute (3) History of MRSA infection Current Visit: Yes Status: Acute - Plan 1. Continue with IV antibiotic 2. Continue with local wound care 3. Hand consultation 4. Gentle IV hydration 5. Monitor CBC 6. Strict blood sugar monitoring 7. Pain control 8. GI and DVT prophylaxis Discharge Plan: Home Plan to discharge in: Greater than 2 days - Advance Directives Does patient have a Living Will: No Does patient have a Durable POA for Healthcare: No - Code Status/Comfort Care Code Status Assessed: Yes Code Status: Full Code Critical Care: No Time Spent Managing PTS Care (In Minutes): 50
[2018-08-05] MEDS ORDERED: Ringers Lactate 1,000 ML IV ONE (12:15)
[2018-08-05] MEDS ORDERED: PROPOFOL 200 MG/20 ML VIAL IV ONE (12:18)
[2018-08-05] MEDS ORDERED: LIDOCAINE 1% MPF 5 ML VIAL ONE (12:19)
[2018-08-05] MEDS ORDERED: MIDAZOLAM HCL 2 MG/2 ML INJ ONE (12:19)
[2018-08-05] MEDS ORDERED: FENTANYL CITR 100 MCG/2 ML ONE ×2 (12:19→14:29)
[2018-08-05] MEDS: VANCOMYCIN 1.75 GM in NA CHLORIDE 0.9% 500 ML IVPB SCH (13:57)
--- NOTE | 2018-08-05 14:02 | P.PN ---
Subjective Date of Service: 08/05/18 Chief Complaint: Abscess of the hand/arm Seen and examined at bedside with RN. Chart reviewed. Case discussed with surgery. Currently patient is complaining of having excruciating pain in the affected hand. Patient stated that his last IV drug use was a year ago however there has been of several skin-popping hunt on the hand. Patient stated that his abscess has been going on for past month where he has been taking it out himself by pressing on the sides of his hand. Currently awaiting surgery with plastic Review of Systems 10-point ROS is otherwise unremarkable Physical Examination - Vital Signs Temperature: 98.7 F Blood Pressure: 118/56 Pulse: 81 Respirations: 18 Pulse Ox (%): 97 - Physical Exam General: Alert, In no apparent distress HEENT: Atraumatic, PERRLA, EOMI Neck: Supple, JVD not distended Respiratory: Clear to auscultation bilaterally, Normal air movement Cardiovascular: Regular rate/rhythm, Normal S1 S2 Gastrointestinal: Normal bowel sounds, No tenderness Musculoskeletal: Erythema, Tenderness, Warmth (Right arm with erythema and tenderness. Several skin-popping areas noted.) Integumentary: No rashes Neurological: Normal speech, Normal tone, Normal affect Lymphatics: No axilla or inguinal lymphadenopathy - Studies Laboratory Data (last 24 hrs) 08/04/18 15:40: WBC 15.0 H, Hgb 13.8, Hct 40.5, Plt Count 229 08/04/18 15:11: Sodium 138, Potassium 4.1, BUN 13, Creatinine 1.20, Glucose 86 Medications List Reviewed: Yes Assessment And Plan - Current Problems (Diagnosis) (1) IV drug abuse Current Visit: Yes Status: Acute (2) Hand abscess Current Visit: Yes Status: Acute Discharge Plan: Home Plan to discharge in: Greater than 2 days - Code Status/Comfort Care Code Status Assessed: Yes Critical Care: No
[2018-08-05] MEDS: HYDROMORPHONE HCL 1 MG/ML INJ ONE ×2 (15:09→15:14)
[2018-08-05] MEDS ORDERED: HYDROMORPHONE HCL 1 MG/ML INJ ONE (15:33)
[2018-08-05] MEDS: MORPHINE 2 MG/ML SYR IV PRN ×2 (17:52→21:53)
[2018-08-05] MEDS ORDERED: KETOROLAC 30 MG/ML INJ IV ONE (22:34)
[2018-08-06] MEDS: NA CHLORIDE 0.9% 1,000 ML IV SCH ×2 (00:40→14:00)
[2018-08-06] MEDS: MUPIROCIN 2% OINT 22GM TUBE TOP SCH ×3 (01:07→22:28)
[2018-08-06] MEDS: TEMAZEPAM 15 MG CAP PO PRN (01:09)
[2018-08-06] MEDS: VANCOMYCIN 1.75 GM in NA CHLORIDE 0.9% 500 ML IVPB SCH ×2 (01:10→11:28)
--- NOTE | 2018-08-06 01:59 | OP ---
Surgeon: Raymond Serrano MD Credit Administration Manager: Singh. Preoperative Diagnosis: Abscess of the right forearm. Postoperative Diagnosis: Abscess of the right forearm. Procedure Performed: Excision of skin, subcutaneous tissue, release of the volar compartment. Anesthesia: General. Procedure In Detail: After satisfactory induction of general anesthesia, right arm was prepped with Betadine scrub, Betadine paint, dry sterile drapes applied in usual manner. Arm was elevated. Tourniquet inflated to 250 mmHg. A sterile tourniquet was applied. Elliptical incision was made over the entry site of the right volar forearm and the incision was made and proximal distal extension was performed. The patient was tracking up proximally underneath the volar fascia. This was opened to proximal within about 10 cm of the elbow on the ulnar side. This looked like MRSA thick creamy green pus. Cultures were taken. The wound was jet lavaged and irrigated with 3 L of dilute Betadine solution, scrubbed with a scrub brush. Tourniquet released. Electrocautery was used for hemostasis. Wound packed with Betadine-soaked 2-inch Mary and Kerlix. The patient tolerated the procedure well. Returned to recovery. CARISA/JENNI Voice ID: [id number] Report ID: [id number] MATTHEW
--- NOTE | 2018-08-06 08:43 | DS ---
History Of Present Illness: The patient is a 33-year-old white male, who is right-hand dominant, who has infection of the right forearm for about 3 days. He has had multiple infections in the past. A bout 6 months ago, he had infection of his left cheek area. It has been treated with antibiotics, no w presents in consultation. He works in [employer] and may have had multiple puncture wounds. He has abrasions all over his body. Past Medical History: No medical problems. Past Surgical History: No surgeries. Social History: Smokes marijuana every day. Drinks alcohol occasionally. Allergies: NO ALLERGIES. Medications: No medications. Physical Examination: VITAL SIGNS: 5 feet 8 inches, 211 pounds. EXTREMITIES: On examination, the right forearm has a near the wrist volar surface with discoloration and tenderness and a dried wound that is draining yellow pus, surrounding erythema of about 2 cm in diameter, and he has pain up to forearm approaching the elbow on the ulnar side. Assessment: Abscess of the right forearm. Plan: Incision and drainage. JING Voice ID: [id number] Report ID: [id number]
[2018-08-06] MEDS: MORPHINE 2 MG/ML SYR IV PRN (11:28)
[2018-08-06] MEDS: MEPERIDINE HCL 50 MG/ML AMP IM PRN ×2 (13:09→22:00)
--- NOTE | 2018-08-06 13:40 | P.PN ---
Subjective Date of Service: 08/06/18 Chief Complaint: Abscess of the hand/arm Seen and examined at bedside with RN. Chart reviewed. Case discussed with surgery. S/P Surgical Debridment POD # 1. He states that he would like to go home by Thursday as it is not think that he needs to here in the hospital. Patient educated regarding his need to be here for the surgical debridement. Patient at this time also complains of having pain. Morphine IV is on board at this time Review of Systems 10-point ROS is otherwise unremarkable Physical Examination - Vital Signs Temperature: 97.5 F Blood Pressure: 116/67 Pulse: 77 Respirations: 18 Pulse Ox (%): 98 - Physical Exam General: Alert, In no apparent distress HEENT: Atraumatic, PERRLA, EOMI Neck: Supple, JVD not distended Respiratory: Clear to auscultation bilaterally, Normal air movement Cardiovascular: Regular rate/rhythm, Normal S1 S2 Gastrointestinal: Normal bowel sounds, No tenderness Musculoskeletal: Erythema, Tenderness, Warmth Integumentary: No rashes Neurological: Normal speech, Normal tone, Normal affect Lymphatics: No axilla or inguinal lymphadenopathy - Studies Medications List Reviewed: Yes Assessment And Plan - Current Problems (Diagnosis) (1) Hand abscess Current Visit: Yes Status: Acute Plan: Most likely secondary to skin-popping - Status post surgical debridement at this time -continue IV antibiotics -another surgical intervention planned for Thursday -wound dressing changes every 8 hr (2) IV drug abuse Current Visit: Yes Status: Acute Discharge Plan: Home Plan to discharge in: 72 Hours - Code Status/Comfort Care Code Status Assessed: Yes Critical Care: No
[2018-08-07] MEDS: MORPHINE 2 MG/ML SYR IV PRN ×2 (00:06→04:26)
[2018-08-07] MEDS: VANCOMYCIN 1.75 GM in NA CHLORIDE 0.9% 500 ML IVPB SCH ×2 (00:07→14:56)
[2018-08-07] MEDS: NA CHLORIDE 0.9% 1,000 ML IV SCH ×2 (06:36→16:32)
--- NOTE | 2018-08-07 06:38 | DS ---
The patient's wound is improving . He now feels better. Planned surgery Thursday. I will debride and closing at that time. CARISA/JENNI Voice ID: [id number] Report ID: [id number] MTDD
[2018-08-07] MEDS: MUPIROCIN 2% OINT 22GM TUBE TOP SCH ×2 (08:53→21:00)
[2018-08-07] MEDS: HYDROCODONE/APAP 7.5/325 MG TAB PO PRN ×3 (08:54→23:02)
--- NOTE | 2018-08-07 10:46 | P.PN ---
Subjective Date of Service: 08/07/18 Chief Complaint: Abscess of the hand/arm Seen and examined at bedside with RN. Chart reviewed. Case discussed with surgery. S/P Surgical Debridment POD # 2. He states that he would like to go home by Thursday as he does not think that he needs to here in the hospital. Patient educated regarding his need to be here for the surgical debridement on thursday. Patient at this time also complains of having pain. Morphine IV is on board at this time Review of Systems 10-point ROS is otherwise unremarkable Physical Examination - Vital Signs Temperature: 97.6 F Blood Pressure: 129/70 Pulse: 83 Respirations: 20 Pulse Ox (%): 98 - Physical Exam General: Alert, In no apparent distress HEENT: Atraumatic, PERRLA, EOMI Neck: Supple, JVD not distended Respiratory: Clear to auscultation bilaterally, Normal air movement Cardiovascular: Regular rate/rhythm, Normal S1 S2 Gastrointestinal: Normal bowel sounds, No tenderness Musculoskeletal: Erythema, Tenderness, Warmth, Other (Pic on Chart. Right arm wraped with TONI bandage. Serasanginous discharge noted. ) Integumentary: No rashes Neurological: Normal speech, Normal tone, Normal affect Lymphatics: No axilla or inguinal lymphadenopathy - Studies Medications List Reviewed: Yes Assessment And Plan - Current Problems (Diagnosis) (1) Hand abscess Current Visit: Yes Status: Acute Plan: Most likely secondary to skin-popping -Status post surgical debridement POD # 2 -continue IV antibiotics for now -another surgical intervention planned for Thursday -wound dressing changes every 8 hr -Wound Care Consulted. (2) IV drug abuse Current Visit: Yes Status: Chronic Plan: Chronic IV drug abuse -UDS + for opiotes, Amphetamines and THC Discharge Plan: Home Plan to discharge in: 48 Hours - Code Status/Comfort Care Code Status Assessed: Yes Critical Care: No
[2018-08-07] MEDS: MEPERIDINE HCL 50 MG/ML AMP IM PRN ×2 (12:20→19:34)
--- NOTE | 2018-08-07 12:51 | PN ---
The patient's wound getting changed 3 times a day. He has planned the surgery for Thursday. He is to be n.p.o. at midnight, Thursday. JING Voice ID: [id number] Report ID: [id number]
[2018-08-08] MEDS: NA CHLORIDE 0.9% 1,000 ML IV SCH ×3 (06:00→19:20)
[2018-08-08] MEDS: MEPERIDINE HCL 50 MG/ML AMP IM PRN ×3 (06:20→23:38)
[2018-08-08] MEDS: ONDANSETRON 4 MG/2 ML VIAL IV PRN (06:42)
[2018-08-08] MEDS: HYDROCODONE/APAP 7.5/325 MG TAB PO PRN ×2 (08:35→15:38)
[2018-08-08] MEDS: MUPIROCIN 2% OINT 22GM TUBE TOP SCH (08:36)
--- NOTE | 2018-08-08 13:11 | P.PN ---
Subjective Date of Service: 08/08/18 Chief Complaint: Abscess of the hand/arm Seen and examined at bedside with RN. Chart reviewed. Case discussed with surgery. S/P Surgical Debridment POD # 3. No c.o offer overnight. Scheduled for debridement on Thursday Review of Systems 10-point ROS is otherwise unremarkable Physical Examination - Vital Signs Temperature: 97.4 F Blood Pressure: 130/63 Pulse: 72 Respirations: 18 Pulse Ox (%): 98 - Physical Exam General: Alert, In no apparent distress HEENT: Atraumatic, PERRLA, EOMI Neck: Supple, JVD not distended Respiratory: Clear to auscultation bilaterally, Normal air movement Cardiovascular: Regular rate/rhythm, Normal S1 S2 Gastrointestinal: Normal bowel sounds, No tenderness Musculoskeletal: Erythema, Tenderness, Warmth, Other (Fransico wrap bandage dressing in place) Integumentary: No rashes Neurological: Normal speech, Normal tone, Normal affect Lymphatics: No axilla or inguinal lymphadenopathy - Studies Medications List Reviewed: Yes Assessment And Plan - Current Problems (Diagnosis) (1) Hand abscess Current Visit: Yes Status: Acute Plan: Most likely secondary to skin-popping -Status post surgical debridement POD # 3 -continue IV antibiotics. Wound culture positive for MRSA -another surgical intervention planned for Thursday -wound dressing changes every 8 hr -Wound Care Consulted. (2) IV drug abuse Current Visit: Yes Status: Chronic Plan: Chronic IV drug abuse -UDS + for opiotes, Amphetamines and THC - Plan Pending clinical improvement at this time Discharge Plan: Home Plan to discharge in: 48 Hours - Code Status/Comfort Care Code Status Assessed: Yes Critical Care: No
[2018-08-08] MEDS: VANCOMYCIN 1.75 GM in NA CHLORIDE 0.9% 500 ML IVPB SCH ×3 (15:24)
[2018-08-09] MEDS: VANCOMYCIN 1.75 GM in NA CHLORIDE 0.9% 500 ML IVPB SCH ×2 (00:07→13:35)
[2018-08-09 03:51] LABS: Barbiturates NEGATIVE (NEGATIVE); Benzodiazepines NEGATIVE (NEGATIVE); Cocaine NEGATIVE (NEGATIVE); METHAMPHETAM NEGATIVE (NEGATIVE); Methadone NEGATIVE (NEGATIVE); Opiates NEGATIVE (NEGATIVE); Phencyclidine NEGATIVE (NEGATIVE); THC Cannibis POSITIVE (NEGATIVE)
[2018-08-09] MEDS: NA CHLORIDE 0.9% 1,000 ML IV SCH ×2 (09:26→20:53)
[2018-08-09] MEDS: HYDROCODONE/APAP 7.5/325 MG TAB PO PRN (10:15)
--- NOTE | 2018-08-09 12:48 | P.PN ---
Subjective Date of Service: 08/09/18 Chief Complaint: Abscess of the hand/arm Seen and examined at bedside with RN. Chart reviewed. Case discussed with surgery. S/P Surgical Debridment POD # 4. No c.o offer overnight. Scheduled for debridement on Thursday with Dr Serrano Review of Systems 10-point ROS is otherwise unremarkable Physical Examination - Vital Signs Temperature: 97.2 F Blood Pressure: 174/82 Pulse: 87 Respirations: 18 Pulse Ox (%): 100 - Physical Exam General: Alert, In no apparent distress HEENT: Atraumatic, PERRLA, EOMI Neck: Supple, JVD not distended Respiratory: Clear to auscultation bilaterally, Normal air movement Cardiovascular: Regular rate/rhythm, Normal S1 S2 Gastrointestinal: Normal bowel sounds, No tenderness Musculoskeletal: Erythema, Tenderness, Warmth Integumentary: No rashes Neurological: Normal speech, Normal tone, Normal affect Lymphatics: No axilla or inguinal lymphadenopathy - Studies Medications List Reviewed: Yes Assessment And Plan - Current Problems (Diagnosis) (1) Hand abscess Current Visit: Yes Status: Acute Plan: Most likely secondary to skin-popping -Status post surgical debridement POD # 4 -continue IV antibiotics. Wound culture positive for MRSA -another surgical intervention planned for Thursday -wound dressing changes every 8 hr -Wound Care Consulted. -Pt is a IV drug Abuser and PICC line would not be a good option for him. -F.U with Plastic post Debriement (2) IV drug abuse Current Visit: Yes Status: Chronic Plan: Chronic IV drug abuse -UDS + for opiotes, Amphetamines and THC - Plan Pending clinical improvement at this time Discharge Plan: Home Plan to discharge in: 72 Hours - Code Status/Comfort Care Code Status Assessed: Yes Critical Care: No
[2018-08-09] MEDS: MEPERIDINE HCL 50 MG/ML AMP IM PRN (14:10)
[2018-08-09] MEDS: TEMAZEPAM 15 MG CAP PO PRN (20:47)
[2018-08-10] MEDS: VANCOMYCIN 1.75 GM in NA CHLORIDE 0.9% 500 ML IVPB SCH (00:28)
--- NOTE | 2018-08-10 06:23 | DS ---
The patient's hand is markedly improved. He is able to use it in flexion/extension without pain. He is getting dressing changes. Planned surgery tomorrow. He is n.p.o. at midnight. We will debride and close them, and will be discharged after that. JING Voice ID: [id number] Report ID: [id number]
[2018-08-10] MEDS: ONDANSETRON 4 MG/2 ML VIAL IV PRN (07:47)
[2018-08-10] MEDS ORDERED: TRAMADOL HCL 50 MG TAB PO PRN (08:04)
[2018-08-10] MEDS ORDERED: MIDAZOLAM HCL 2 MG/2 ML INJ ONE (09:20)
[2018-08-10] MEDS ORDERED: PROPOFOL 200 MG/20 ML VIAL IV ONE (09:25)
[2018-08-10] MEDS ORDERED: FENTANYL CITR 100 MCG/2 ML ONE (09:25)
[2018-08-10] MEDS ORDERED: LIDOCAINE 2% MPF 5 ML VIAL ONE (09:25)
[2018-08-10] MEDS ORDERED: ONDANSETRON 4 MG/2 ML VIAL ONE (09:26)
[2018-08-10] MEDS: HYDROMORPHONE HCL 1 MG/ML INJ ONE ×2 (10:14→10:19)
[2018-08-10] MEDS ORDERED: HYDROMORPHONE HCL 1 MG/ML INJ ONE (10:29)
--- NOTE | 2018-08-10 10:40 | P.DS ---
Admission Date: 08/04/18 Discharge Date: 08/10/18 Primary Care Provider: None; Hand Plastic Surgery-Dr. Serrano Disposition: ROUTINE DISCHARGE Discharge Condition: GOOD Reason for Admission: Abscess of the hand/arm Consultations: Hand/Plastic Surgery-Dr. Serrano Procedures: CT scan: COMPARISON: None. TECHNIQUE: Computed axial tomography of right forearm obtained. 50 cc Isovue- [address]. [address] scans are performed using dose optimization technique as appropriate and may include automated exposure control or mA/KV adjustment according to patient size. FINDINGS: An 18 millimeter low-density fluid collection is present within an the ulnar aspect of the distal forearm within the subcutaneous tissues. The fluid collection extends proximally within the ulnar soft tissues measuring approximately 50 x 6 millimeters. This all likely represents an abscess. There is extensive edema within the subcutaneous tissues compatible with a cellulitis. No bony destructive lesion is seen. IMPRESSION: 18 millimeter abscess within the ulnar subcutaneous tissues of the distal forearm. An abscess tract extends proximally within the subcutaneous tissues measuring 50 x 6 millimeters Surgery: Date: 08/05/2018 Surgeon: Raymond Serrano MD Cloud Systems Administrator: Singh. Preoperative Diagnosis: Abscess of the right forearm. Postoperative Diagnosis: Abscess of the right forearm. Procedure Performed: Excision of skin, subcutaneous tissue, release of the volar compartment. Anesthesia: General. Surgery: Date: 08/10/2018 Procedure: Irrigation and debridement with closure of wound. Pathology: Diagnosis: Skin and subcutaneoud tissue, right forearm abscess, debridement. Compatible with abscess. Medical Problem List: 18 millimeter abscess within the ulnar subcutaneous tissues of the distal forearm with abscess tract extending proximally within the subcutaneous tissues measuring 50 x 6 millimeters, wound culture positive for methicillin-resistant Staph aureus IV drug abuse with positive urine drug screen for THC, opiates and amphetamines Brief History of Present Illness: 33-year-old male presented to the emergency room with a right hand and forearm swelling. Abscess was identified. Patient admitted for treatment. Hand surgery plans for surgery. Hospital Course: Patient found to have 18 mm abscess with ulnar subcutaneous tissues of the distal forearm with abscess tract extending proximally within the subcutaneous tissues measuring 50 x 6 mm. Patient evaluated by hand/plastic surgery. Surgery performed included excision of skin and subcutaneous tissue and release of the volar compartment. Patient was started on IV antibiotic therapy. Wound culture positive for methicillin Staph aureus. Patient required further surgery for irrigation and debridement with final closure of wound. This is all likely related to his IV drug abuse. Patient was found to be positive for THC, opiates and amphetamines. Patient admitted use of drugs. Education on cessation addressed in detail. Patient plans to quit. Patient with prior history of infection including MRSA in the past. At discharge patient will continue with wound care changes as per hand surgery. Patient will follow up with Hand surgery within the next week to follow up this hospitalization and surgery. At discharge he will continue with Bactrim DS 1 pill twice daily and doxycycline 100 mg 1 pill twice daily for 2 more weeks. Bactroban ointment to the skin daily. This was discussed in detail with infectious disease. Recommendation to monitor lab at least every week including BMP to monitor renal function while on antibiotics. Recommendation is for the patient to establish care with a local PCP to follow up this hospitalization and continue his care. Patient will continue with cessation of IV drug use. A limited supply of tramadol 50 mg 1 pill 3 times a day as needed for pain will be provided. Wound care will be addressed prior to discharge. Vital Signs/Physical Exam: Temp Pulse Resp BP Pulse Ox 98.1 F 80 16 126/77 99 08/10/18 10:27 08/10/18 10:27 08/10/18 10:27 08/10/18 10:27 08/10/18 08:00 General: Alert, In no apparent distress, Oriented x3, Cooperative HEENT: Atraumatic Neck: Supple Respiratory: Clear to auscultation bilaterally, Normal air movement Cardiovascular: Normal pulses, Regular rate/rhythm Gastrointestinal: Normal bowel sounds, Soft and benign, Non-distended, No tenderness, No masses, No rebound, No guarding Musculoskeletal: No erythema, No tenderness, No warmth Integumentary: Other (wound wrapped with bandage) Neurological: Normal speech, Normal strength at 5/5 x4 extr, Normal tone, Normal affect Laboratory Data at Discharge: WBC 11.7 K/uL (4.3-10.9) H D 08/05/18 04:34 Hgb 13.2 g/dL (13.6-17.9) L 08/05/18 04:34 Hct 39.0 % (39.6-49.0) L 08/05/18 04:34 Plt Count 224 K/uL (152-406) 08/05/18 04:34 Sodium 137 mmol/L (136-145) 08/05/18 04:34 Potassium 4.3 mmol/L (3.5-5.1) 08/05/18 04:34 BUN 13 mg/dL (7-18) 08/05/18 04:34 Creatinine 1.00 mg/dL (0.55-1.3) 08/05/18 04:34 Glucose 99 mg/dL (74-106) 08/05/18 04:34 Home Medications: Chlorhexidine 4% [Betasept*] 1 appl TOP UD #1 btl 08/10/18 Doxycycline Hyclate 100 mg PO BID #28 tablet 08/10/18 Mupirocin Oint [Bactroban 2% Ointment] 8 appl TOP DAILY #1 tube 08/10/18 Sulfamethoxazole/Trimethoprim [Bactrim Ds Tablet] 1 each PO BID #28 tablet 08/10 traMADol HCL [Ultram*] 50 mg PO TID PRN #10 tab 08/10/18 New Medications: Chlorhexidine 4% [Betasept*] 1 appl TOP UD #1 btl Doxycycline Hyclate 100 mg PO BID #28 tablet Mupirocin Oint [Bactroban 2% Ointment] 8 appl TOP DAILY #1 tube Sulfamethoxazole/Trimethoprim [Bactrim Ds Tablet] 1 each PO BID #28 tablet traMADol HCL [Ultram*] 50 mg PO TID PRN #10 tab PRN Reason: Pain Mild Patient Discharge Instructions: 1. Patient will need to establish care with a PCP to follow up this hospitalization and continue his care. 2. Patient found to have 18 mm abscess with ulnar subcutaneous tissues of the distal forearm with abscess tract extending proximally within the subcutaneous tissues measuring 50 x 6 mm. Patient evaluated by hand/plastic surgery. Surgery performed included excision of skin and subcutaneous tissue and release of the volar compartment. Patient was started on IV antibiotic therapy. Wound culture positive for methicillin Staph aureus. Patient required further surgery for irrigation and debridement with final closure of wound. This is all likely related to his IV drug abuse. Patient was found to be positive for THC, opiates and amphetamines. Patient admitted use of drugs. Education on cessation addressed in detail. Patient plans to quit. Patient with prior history of infection including MRSA in the past. At discharge patient will continue with wound care changes as per hand surgery. Patient will follow up with Hand surgery within the next week to follow up this hospitalization and surgery. At discharge he will continue with Bactrim DS 1 pill twice daily and doxycycline 100 mg 1 pill twice daily for 2 more weeks. Bactroban ointment to the skin daily. This was discussed in detail with infectious disease. Recommendation to monitor lab at least every week including BMP to monitor renal function while on antibiotics. Recommendation is for the patient to establish care with a local PCP to follow up this hospitalization and continue his care. Patient will continue with cessation of IV drug use. A limited supply of tramadol 50 mg 1 pill 3 times a day as needed for pain will be provided. Wound care will be addressed prior to discharge. Diet: AHA Activity: Ad karmen Time spent managing pt's care (in minutes): 55
[2018-08-10] MEDS: NA CHLORIDE 0.9% 1,000 ML IV SCH (11:20)
--- NOTE | 2018-08-10 11:38 | OP ---
Surgeon: Raymond Serrano MD Survey Research Teacher: Singh. Preoperative Diagnosis: Open wound of the right forearm. Postoperative Diagnosis: Open wound of the right forearm. Procedure Performed: Debridement of skin and subcutaneous tissue, simple closure 24 cm. Anesthesia: General. Procedure In Detail: After satisfactory induction of general anesthesia, the right arm was prepped w ith Betadine scrub and Betadine paint. Dry sterile drapes applied in the usual manner. The elbow wa s flexed. The arm scrubbed with a scrub brush, and then jet lavage, irrigated with 3 L of dilute Bet adine solution. The wound was then closed with vertical mattresses sutures of 3-0 Prolene and in bet ween with lance. Dressed with Xeroform and Kerlix. The patient tolerated the procedure well and r eturned to Recovery. CARISA/JENNI Voice ID: [id number] Report ID: [id number]
== END 2018-08-10 11:44 | disposition home or self-care (01) | DRG 572 ==
LOC: ER 13:53 → 2ND 21:01
PROVIDERS: ADMIT Hospitalist; ATTEND Family Medicine
PROC: 0KN90ZZ Release Right Lower Arm and Wrist Muscle, Open Approach (ICD-10-PCS; 2018-08-05)
PROC: 0JBG0ZZ Excision of Right Lower Arm Subcutaneous Tissue and Fascia, Open Approach (ICD-10-PCS; principal; 2018-08-05 12:15)
PROC: 0JDG0ZZ Extraction of Right Lower Arm Subcutaneous Tissue and Fascia, Open Approach (ICD-10-PCS; 2018-08-10)
DX: L02.413 Cutaneous abscess of right upper limb (principal); B95.62 Methicillin resistant Staphylococcus aureus infection as the cause of diseases classified elsewhere; F15.10 Other stimulant abuse, uncomplicated; F12.10 Cannabis abuse, uncomplicated; F11.10 Opioid abuse, uncomplicated
CPT/HCPCS: 36415; 73201; 80048; 80202; 80307; 81001; 83605; 84145; 85025; 87040; 87070; 87075; 87077; 87186; 87205; 88304; 96365; 96375; 99285; J1170; J2175; J2250; J2270; J2405; J2704; J3010; J3370; J7030; Q2035; Q9967

== ENCOUNTER 2019-03-03 07:13 | Emergency (ER) | payer SELFPAY ==
--- OUTSIDE RECORDS SUMMARY | 2019-03-03 07:16 | XMS REPORT ---
:1985 [facility] Address [address] [place] [address] Dr. Wesley [address] [place] [id number] Care Team Providers Name Role Phone Unavailable Unavailable Unavailable Problems This patient has no known problems. Allergies, Adverse Reactions, Alerts This patient has no known allergies or adverse reactions. Medications This patient has no known medications.
--- NOTE | 2019-03-03 07:36 | EDPHYS ---
Physician Documentation [facility] Name: Milton Alfaro Jr Age: 34 yrs Sex: Male : 1985 Arrival Date: 03/03/2019 Time: 07:15 Bed 19 Private MD: ED Physician Ryan Crowder HPI: 03/03 07:33 This 34 yrs old Male presents to ER via EMS with complaints of Anxiety. christie 07:33 anxious. Onset: The symptoms/episode began/occurred just prior to arrival. Severity of christie symptoms: At their worst the symptoms were mild in the emergency department the symptoms are unchanged. The patient has not experienced similar symptoms in the past. Historical: - Allergies: 07:20 No Known Allergies; iw - Home Meds: 07:20 None [Active]; iw - PMHx: 07:20 None; iw - PSHx: 07:20 right arm; iw - Immunization history:: Adult Immunizations not up to date. - Social history:: Smoking status: Patient uses tobacco products, smokes one-half pack cigarettes per day, Patient uses IV drugs, amphetamines. - Ebola Screening: : Patient negative for fever greater than or equal to 101.5 degrees Fahrenheit, and additional compatible Ebola Virus Disease symptoms Patient denies exposure to infectious person Patient denies travel to an Ebola-affected area in the 21 days before illness onset No symptoms or risks identified at this time. - Family history:: not pertinent. ROS: 07:33 Constitutional: Negative for fever, chills, and weight loss, Eyes: Negative for injury, christie pain, redness, and discharge, ENT: Negative for injury, pain, and discharge, Neck: Negative for injury, pain, and swelling, Cardiovascular: Negative for chest pain, palpitations, and edema, Respiratory: Negative for shortness of breath, cough, wheezing, and pleuritic chest pain, Abdomen/GI: Negative for abdominal pain, nausea, vomiting, diarrhea, and constipation, Back: Negative for injury and pain, : Negative for injury, bleeding, discharge, and swelling, MS/Extremity: Negative for injury and deformity, Skin: Negative for injury, rash, and discoloration, Psych: Negative for depression, anxiety, suicide ideation, homicidal ideation, and hallucinations, Allergy/Immunology: Negative for hives, rash, and allergies, Endocrine: Negative for neck swelling, polydipsia, polyuria, polyphagia, and marked weight changes, Hematologic/Lymphatic: Negative for swollen nodes, abnormal bleeding, and unusual bruising. 07:33 Neuro: Positive for of the scalp. 07:42 Psych: Positive for anxiety. christie Exam: 07:33 Constitutional: This is a well developed, well nourished patient who is awake, alert, christie and in no acute distress. Head/Face: Normocephalic, atraumatic. Eyes: Pupils equal round and reactive to light, extra-ocular motions intact. Lids and lashes normal. Conjunctiva and sclera are non-icteric and not injected. Cornea within normal limits. Periorbital areas with no swelling, redness, or edema. ENT: Nares patent. No nasal discharge, no septal abnormalities noted. Tympanic membranes are normal and external auditory canals are clear. Oropharynx with no redness, swelling, or masses, exudates, or evidence of obstruction, uvula midline. Mucous membranes moist. Neck: Trachea midline, no thyromegaly or masses palpated, and no cervical lymphadenopathy. Supple, full range of motion without nuchal rigidity, or vertebral point tenderness. No Meningismus. Chest/axilla: Normal chest wall appearance and motion. Nontender with no deformity. No lesions are appreciated. Cardiovascular: Regular rate and rhythm with a normal S1 and S2. No gallops, murmurs, or rubs. Normal PMI, no JVD. No pulse deficits. Respiratory: Lungs have equal breath sounds bilaterally, clear to auscultation and percussion. No rales, rhonchi or wheezes noted. No increased work of breathing, no retractions or nasal flaring. Abdomen/GI: Soft, non-tender, with normal bowel sounds. No distension or tympany. No guarding or rebound. No evidence of tenderness throughout. Back: No spinal tenderness. No costovertebral tenderness. Full range of motion. Male : Normal genitalia with no discharge or lesions. Skin: Warm, dry with normal turgor. Normal color with no rashes, no lesions, and no evidence of cellulitis. MS/ Extremity: Pulses equal, no cyanosis. Neurovascular intact. Full, normal range of motion. Neuro: Awake and alert, GCS 15, oriented to person, place, time, and situation. Cranial nerves II-XII grossly intact. Motor strength 5/5 in all extremities. Sensory grossly intact. Cerebellar exam normal. Normal gait. 07:33 Psych: Behavior/mood is pleasant, cooperative, Affect is animated, Oriented to person, place, time, Patient has no thoughts/intents to harm self or others. Judgement / Insight is normal. Vital Signs: 07:19 BP 138 / 93; Pulse 92; Resp 18 S; Temp 98.2; Pulse Ox 100% on R/A; Weight 94.35 kg; iw Height 5 ft. 8 in. (172.72 cm); Pain 0/10; 07:19 Body Mass Index 31.63 (94.35 kg, 172.72 cm) iw MDM: 07:21 Patient medically screened. [facility] 07:41 Data reviewed: vital signs, nurses notes. [facility] Administered Medications: No medications were administered Disposition: 03/03/19 07:35 Patient left the facility after being seen by provider. Preliminary diagnosis are Anxiety disorder, unspecified, Abuse of non-psychoactive substances, Adverse effect of amphetamines. - Patient left due to (see nurse's notes). - Condition is Stable. - Problem is new. - Symptoms have improved. Signatures: Ryan Crowder MD MD cha Williams, Irene, RN RN Andria Quiñones, RN RN aa5 Corrections: (The following items were deleted from the chart) 07:41 07:35 03/03/2019 07:35 Patient left the facility after being seen by provider. Reason [facility] stated they are leaving due to (see nurse's notes). aa5 07:42 07:38 Back: Positive for flank pain, on the left, christie [facility] 08:13 07:41 03/03/2019 07:35 Patient left the facility after being seen by provider. iw Preliminary diagnosis is Anxiety disorder, unspecified; Abuse of non-psychoactive substances; Adverse effect of amphetamines. Reason stated they are leaving due to (see nurse's notes). Condition is Stable. Problem is new. Symptoms have improved. [facility]
--- NOTE | 2019-03-03 07:36 | ER ---
Nurse's Notes [facility] Name: Milton Alfaro Jr Age: 34 yrs Sex: Male : 1985 Arrival Date: 03/03/2019 Time: 07:15 Bed 19 Private MD: Diagnosis: Anxiety disorder, unspecified;Abuse of non-psychoactive substances;Adverse effect of amphetamines Presentation: 03/03 07:16 Presenting complaint: EMS states: pt was being detained by police, started to have a iw panic attack, stated hyperventilating, had some cramping in his chest , vomited once, pt states he has a lot of stuff going on, was evicted, girlfriend was arrested. Transition of care: patient was not received from another setting of care. Onset of symptoms was March 03, 2019. Risk Assessment: Do you want to hurt yourself or someone else? Patient reports no desire to harm self or others. Initial Sepsis Screen: Does the patient meet any 2 criteria? No. Patient's initial sepsis screen is negative. Does the patient have a suspected source of infection? No. Patient's initial sepsis screen is negative. Care prior to arrival: None. 07:16 Method Of Arrival: EMS: [facility] iw 07:16 Acuity: SANDY 3 iw Historical: - Allergies: 07:20 No Known Allergies; iw - Home Meds: 07:20 None [Active]; iw - PMHx: 07:20 None; iw - PSHx: 07:20 right arm; iw - Immunization history:: Adult Immunizations not up to date. - Social history:: Smoking status: Patient uses tobacco products, smokes one-half pack cigarettes per day, Patient uses IV drugs, amphetamines. - Ebola Screening: : Patient negative for fever greater than or equal to 101.5 degrees Fahrenheit, and additional compatible Ebola Virus Disease symptoms Patient denies exposure to infectious person Patient denies travel to an Ebola-affected area in the 21 days before illness onset No symptoms or risks identified at this time. - Family history:: not pertinent. Screenin:22 Abuse screen: Denies threats or abuse. Denies injuries from another. Nutritional iw screening: No deficits noted. Tuberculosis screening: No symptoms or risk factors identified. Fall Risk None identified. Assessment: 07:18 General: Appears uncomfortable, Behavior is anxious. Pain: Complains of pain in aa5 mid-sternal area Pain does not radiate. Pain currently is 0 out of 10 on a pain scale. Quality of pain is described as crampy, Is intermittent. Neuro: Level of Consciousness is awake, alert, obeys commands, Oriented to person, place, time, situation. Cardiovascular: Heart tones S1 S2 present Rhythm is sinus rhythm. Respiratory: Airway is patent Respiratory effort is even, unlabored, Respiratory pattern is regular, symmetrical, Breath sounds are clear bilaterally. GI: Abdomen is round non-distended, Bowel sounds present X 4 quads. Abd is soft and non tender X 4 quads. Patient currently denies nausea. : No signs and/or symptoms were reported regarding the genitourinary system. EENT: No signs and/or symptoms were reported regarding the EENT system. Derm: Skin is pink, warm \\T\\ dry. Multiple dime-sized sores noted to bilateral arms, neck, and face. No drainage or bleeding noted. Musculoskeletal: Range of motion: intact in all extremities. 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 07:23 Reassessment: Dr. Crowder at bedside . aa5 07:34 Reassessment: Pt noted to be walking out of ER, pt states "I am leaving, I have to take aa5 care of things and my kids" . Vital Signs: 07:19 BP 138 / 93; Pulse 92; Resp 18 S; Temp 98.2; Pulse Ox 100% on R/A; Weight 94.35 kg; iw Height 5 ft. 8 in. (172.72 cm); Pain 0/10; 07:19 Body Mass Index 31.63 (94.35 kg, 172.72 cm) iw ED Course: 07:15 Patient arrived in ED. rb1 07:16 Andria Quiñones, RN is Primary Nurse. aa5 07:19 Triage completed. iw 07:19 Arm band placed on. iw 07:19 Patient has correct armband on for positive identification. Placed in gown. Bed in low aa5 position. Call light in reach. Side rails up X2. threat monitoring analyst on. Pulse ox on. NIBP on. 07:21 Ryan Crowder MD is Attending Physician. [facility] 07:34 Patient did not have IV access during this emergency room visit. aa5 07:40 Primary Nurse role handed off by Andria Quiñones RN iw Administered Medications: No medications were administered Outcome: 07:34 Eloped from patient exam room, after seeing physician Time discovered patient gone: aa5 March 03, 2019 at 07:34 07:35 Patient left the ED. aa5 08:13 Patient left the ED. iw Signatures: Ryan Crowder MD MD cha Williams, Irene, RN RN iw Calderon, Audri, RN RN aa5 Martha Farias RN RN rb1 Corrections: (The following items were deleted from the chart) 07: 07:18 Pain: Complains of pain in mid-sternal area Pain does not radiate. Pain Quality aa5 of pain is described as crampy, Is continuous, aa5 : 07:18 Cardiovascular: Heart tones S1 S2 present Rhythm is regular aa5 aa5
== END 2019-03-03 08:13 | disposition left against medical advice (07) ==
LOC: ER 07:13
DX: F55.8 Abuse of other non-psychoactive substances (principal); T43.625A Adverse effect of amphetamines, initial encounter; F17.210 Nicotine dependence, cigarettes, uncomplicated
CPT/HCPCS: 99284

== ENCOUNTER 2019-03-16 15:10 | Emergency (ER) | payer SELFPAY ==
--- OUTSIDE RECORDS SUMMARY | 2019-03-16 15:14 | XMS REPORT ---
:1985 [facility] Address [address] [place] [address] [address] [place] [address] Care Team Providers Name Role Phone Unavailable Unavailable Unavailable Problems This patient has no known problems. Allergies, Adverse Reactions, Alerts This patient has no known allergies or adverse reactions. Medications This patient has no known medications.
--- NOTE | 2019-03-16 15:31 | EDPHYS ---
Physician Documentation [facility] Name: Milton Alfaro Jr Age: 34 yrs Sex: Male : 1985 Arrival Date: 03/16/2019 Time: 15:15 Bed 28 Private MD: None, None ED Physician Aurelio Antonio HPI: 03/16 15:34 This 34 yrs old Male presents to ER via Ambulatory with complaints of Skin snw Problem. 15:34 The patient's rash thought to be caused by Dermatitis. The rash is located on the body snw diffusely. The rash can be described as erythematous, patchy, excoriated. Onset: The symptoms/episode began/occurred gradually. Associated signs and symptoms: Pertinent positives: itching. Severity of symptoms: At their worst the symptoms were moderate. It is unknown whether or not the patient has had similar symptoms in the past. It is unknown whether or not the patient has recently seen a physician. 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 ROS: 15:32 Constitutional: Negative for fever, chills, and weight loss, Eyes: Negative for injury, snw pain, redness, and discharge, ENT: Negative for injury, pain, and discharge, Neck: Negative for injury, pain, and swelling, Cardiovascular: Negative for chest pain, palpitations, and edema, Respiratory: Negative for shortness of breath, cough, wheezing, and pleuritic chest pain, Abdomen/GI: Negative for abdominal pain, nausea, vomiting, diarrhea, and constipation, Back: Negative for injury and pain, : Negative for injury, bleeding, discharge, and swelling, MS/Extremity: Negative for injury and deformity, Neuro: Negative for headache, weakness, numbness, tingling, and seizure, Psych: Negative for depression, anxiety, suicide ideation, homicidal ideation, and hallucinations. 15:32 Skin: Positive for rash, pt states he has been picking at sores for about a month because he sees bugs moving. PCP gave pt elimite but pt did not get it filled second to cost. Exam: 15:31 Constitutional: This is a well developed, well nourished patient who is awake, alert, snw and in no acute distress. Head/Face: Normocephalic, atraumatic. Eyes: Pupils equal round and reactive to light, extra-ocular motions intact. Lids and lashes normal. Conjunctiva and sclera are non-icteric and not injected. Cornea within normal limits. Periorbital areas with no swelling, redness, or edema. ENT: Nares patent. No nasal discharge, no septal abnormalities noted. Tympanic membranes are normal and external auditory canals are clear. Oropharynx with no redness, swelling, or masses, exudates, or evidence of obstruction, uvula midline. Mucous membranes moist. Neck: Trachea midline, no thyromegaly or masses palpated, and no cervical lymphadenopathy. Supple, full range of motion without nuchal rigidity, or vertebral point tenderness. No Meningismus. Chest/axilla: Normal chest wall appearance and motion. Nontender with no deformity. No lesions are appreciated. Cardiovascular: Regular rate and rhythm with a normal S1 and S2. No gallops, murmurs, or rubs. Normal PMI, no JVD. No pulse deficits. Respiratory: Lungs have equal breath sounds bilaterally, clear to auscultation and percussion. No rales, rhonchi or wheezes noted. No increased work of breathing, no retractions or nasal flaring. Abdomen/GI: Soft, non-tender, with normal bowel sounds. No distension or tympany. No guarding or rebound. No evidence of tenderness throughout. Back: No spinal tenderness. No costovertebral tenderness. Full range of motion. MS/ Extremity: Pulses equal, no cyanosis. Neurovascular intact. Full, normal range of motion. Neuro: Awake and alert, GCS 15, oriented to person, place, time, and situation. Cranial nerves II-XII grossly intact. Motor strength 5/5 in all extremities. Sensory grossly intact. Cerebellar exam normal. Normal gait. Psych: Awake, alert, with orientation to person, place and time. Behavior, mood, and affect are within normal limits. 15:31 Skin: Appearance: normal except for affected area, papules that pt has excoriated by admitted picking "at bugs". Vital Signs: 15:21 BP 119 / 73; Pulse 101; Resp 18; Temp 98.1(TE); Pulse Ox 98% on R/A; Weight 90.72 kg; hj Height 5 ft. 8 in. (172.72 cm); Pain 4/10; 15:21 Body Mass Index 30.41 (90.72 kg, 172.72 cm) hj MDM: 15:26 Patient medically screened. snw 15:32 Data reviewed: vital signs, nurses notes. Data interpreted: Pulse oximetry: on room air snw is 98 %. Interpretation: normal. Counseling: I had a detailed discussion with the patient and/or guardian regarding: the historical points, exam findings, and any diagnostic results supporting the discharge/admit diagnosis, the need for outpatient follow up, to return to the emergency department if symptoms worsen or persist or if there are any questions or concerns that arise at home. Special discussion: Based on the history and exam findings, there is no indication for further emergent testing or inpatient evaluation. I discussed with the patient/guardian the need to see the primary care provider for further evaluation of the symptoms. Administered Medications: 15:35 Drug: Bactrim (160 mg-800 mg (DS) 1 tablet Route: PO; aa5 15:35 Drug: Atarax 50 mg Route: PO; aa5 Disposition: 16:38 Co-signature as Attending Physician, Aurelio Antonio MD. rn Disposition: 03/16/19 15:30 Discharged to Home. Impression: Rash and other nonspecific skin eruption. - Condition is Stable. - Discharge Instructions: Rash. - Prescriptions for Bactrim DS 800- 160 mg Oral Tablet - take 1 tablet by ORAL route every 12 hours for 10 days; 20 tablet. - Medication Reconciliation Form, Thank You Letter, Antibiotic Education, Prescription Opioid Use form. - Follow up: Private Physician; When: 2 - 3 days; Reason: Recheck today's complaints, Continuance of care, Re-evaluation by your physician. Follow up: Emergency Department; When: As needed; Reason: Worsening of condition. Signatures: Bella Knight, COMBINING MACHINE OPERATOR-C COMBINING MACHINE OPERATOR-Csnw Aurelio Antonio MD MD rn Calderon, Audri, RN RN aa5 Jake Gabriel RN RN Corrections: (The following items were deleted from the chart) 16:18 15:30 03/16/2019 15:30 Discharged to Home. Impression: Rash and other nonspecific skin aa5 eruption. Condition is Stable. Forms are Medication Reconciliation Form, Thank You Letter, Antibiotic Education, Prescription Opioid Use. Follow up: Private Physician; When: 2 - 3 days; Reason: Recheck today's complaints, Continuance of care, Re-evaluation by your physician. Follow up: Emergency Department; When: As needed; Reason: Worsening of condition. snw 16:21 15:21 PMHx: None; hj aa5
--- NOTE | 2019-03-16 15:31 | ER ---
Nurse's Notes [facility] Name: Milton Alfaro Jr Age: 34 yrs Sex: Male : 1985 Arrival Date: 03/16/2019 Time: 15:15 Bed 28 Private MD: None, None Diagnosis: Rash and other nonspecific skin eruption Presentation: 03/16 15:19 Presenting complaint: Patient states: i think i have scabies and i have this for months hj now, went to my doctor and Rx with antibiotic cream but i can afford so i didn't get it;. Transition of care: patient was not received from another setting of care. Onset of symptoms was March 16, 2019. Risk Assessment: Do you want to hurt yourself or someone else? Patient reports no desire to harm self or others. Initial Sepsis Screen: Does the patient meet any 2 criteria? No. Patient's initial sepsis screen is negative. Does the patient have a suspected source of infection? No. Patient's initial sepsis screen is negative. Care prior to arrival: None. 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 Screenin:30 Abuse screen: Denies threats or abuse. Nutritional screening: No deficits noted. aa5 Tuberculosis screening: No symptoms or risk factors identified. Fall Risk None identified. Assessment: 15:30 General: Appears comfortable, Behavior is cooperative. Pain: Denies pain. Neuro: Level aa5 of Consciousness is awake, alert, obeys commands, Oriented to person, place, time, situation. Cardiovascular: Patient's skin is warm and dry. Respiratory: Airway is patent Respiratory effort is even, unlabored, Respiratory pattern is regular, symmetrical. GI: No signs and/or symptoms were reported involving the gastrointestinal system. : No signs and/or symptoms were reported regarding the genitourinary system. EENT: No signs and/or symptoms were reported regarding the EENT system. Derm: Skin is pink, warm \\T\\ dry. sores with scabbing noted to face, neck, chest, and bilateral arms, no drainage noted, no bleeding noted. Pt states "I have scabies and I'm itchy". Musculoskeletal: Range of motion: intact in all extremities. 15:35 Reassessment: D/c instructions being given, pt states "I need a note saying that I am aa5 contagious for work and I need the cream for scabies". Pt reminded diagnosis is not scabies at this time and notified that I can give him a release to go back to work. Pt states "I don't need a work excuse, I just need something that says I am contagious". Pt appears upset, pt states "I know I am contagious and that it is scabies, can't you see the bugs coming out of me?". Pt requesting to speak to provider at this time, MULTIMEDIA ASSISTANT notified. . 16:15 Reassessment: Charge Nurse, Natalya Valente RN at bedside speaking to patient about aa5 diagnosis and treatment. Pt walked out of ER. . Vital Signs: 15:21 BP 119 / 73; Pulse 101; Resp 18; Temp 98.1(TE); Pulse Ox 98% on R/A; Weight 90.72 kg; hj Height 5 ft. 8 in. (172.72 cm); Pain 4/10; 15:21 Body Mass Index 30.41 (90.72 kg, 172.72 cm) hj ED Course: 15:15 Patient arrived in ED. dp 15:16 None, None is Private Physician. dp 15:21 Triage completed. hj 15:21 Arm band placed on. hj 15:25 Andria Quiñones, YANA is Primary Nurse. aa5 15:25 Bella Knight FNP-C is PHCP. snw 15:25 Aurelio Antonio MD is Attending Physician. snw 15:30 Patient has correct armband on for positive identification. Bed in low position. Call aa5 light in reach. Side rails up X 1. Adult w/ patient. 15:30 No provider procedures requiring assistance completed. Patient did not have IV access aa5 during this emergency room visit. Administered Medications: 15:35 Drug: Bactrim (160 mg-800 mg (DS) 1 tablet Route: PO; aa5 15:35 Drug: Atarax 50 mg Route: PO; aa5 Outcome: 15:30 Discharge ordered by . lizeth 15:35 Discharged to home ambulatory, with significant other. aa5 15:35 Condition: stable 15:35 Discharge instructions given to patient, Instructed on discharge instructions, follow up and referral plans. medication usage, Demonstrated understanding of instructions, follow-up care, medications, Prescriptions given X 1. 16:18 Patient left the ED. aa5 Signatures: Bella Knight, INDUCTION BRAZER-C INDUCTION BRAZER-Csnw Andria Quiñones RN RN aa5 Jake Gabriel RN RN Abdi Nielson Corrections: (The following items were deleted from the chart) 16:21 15:21 PMHx: None; misael aaJeannette 16:28 16:15 Reassessment: Charge Nurse, Natalya Valente RN at bedside speaking to patient aa5 about diagnoses and treatment. Pt walked out of ER. . aa5
[2019-03-16] MEDS ORDERED: hydrOXYzine HCl 25 MG TAB ONE (15:54)
[2019-03-16] MEDS ORDERED: SMZ./TMP. 800/160 MG TABLET ONE (15:55)
== END 2019-03-16 16:18 | disposition home or self-care (01) ==
LOC: ER 15:10
DX: R21 Rash and other nonspecific skin eruption (principal)

== ENCOUNTER 2020-02-10 00:57 | Emergency (ER) | payer SELFPAY ==
--- NOTE | 2020-02-10 01:55 | ER ---
Nurse's Notes [facility] Name: Milton Alfaro Jr Age: 34 yrs Sex: Male : 1985 Arrival Date: 02/10/2020 Time: 01:07 Bed 7 Private MD: Diagnosis: Person with feared health complaint in whom no diagnosis is made Presentation: 02/09 01:20 Chief complaint: Chief complaint: Patient states: I have pains in my ears, i feel like sg im pulling out stuff like sharp things out of my ears, theres pressure too. denies NVD/FEVER at this time, denies trauma or injury, no obvious signs of trauma or injury noted while in triage. Coronavirus screen: Proceed with normal triage. Ebola Screen: Patient negative for fever greater than or equal to 101.5 degrees Fahrenheit, and additional compatible Ebola Virus Disease symptoms Patient denies exposure to infectious person. Patient denies travel to an Ebola-affected area in the 21 days before illness onset. No symptoms or risks identified at this time. Initial Sepsis Screen: Does the patient meet any 2 criteria? No. Patient's initial sepsis screen is negative. Does the patient have a suspected source of infection? No. Patient's initial sepsis screen is negative. Risk Assessment: Do you want to hurt yourself or someone else? Patient reports no desire to harm self or others. Onset of symptoms was February 10, 2020. Care prior to arrival: None. 01:20 Acuity: SANDY 5 sg 01:20 Method Of Arrival: Ambulatory sg Historical: - Allergies: 01:21 No Known Allergies; sg - PMHx: 01:21 Meth user; sg - PSHx: 01:21 right arm; sg - Immunization history:: Adult Immunizations up to date. - Social history:: Smoking status: Patient denies any tobacco usage or history of. - Family history:: not pertinent. - Hospitalizations: : No recent hospitalization is reported. Screenin:47 Abuse screen: Denies threats or abuse. Nutritional screening: No deficits noted. jb4 Tuberculosis screening: No symptoms or risk factors identified. Fall Risk None identified. Assessment: 01:35 General: Appears in no apparent distress. comfortable, Behavior is calm, cooperative, jb4 appropriate for age, PT reports feeling like he has something in his ear. States "i think I have a mite inside my ear, It feels like I am pulling out little spikes.". Pain: Complains of pain in right ear Pain does not radiate. Pain currently is 5 out of 10 on a pain scale. Neuro: Level of Consciousness is awake, alert, obeys commands, Oriented to person, place, time, situation. Cardiovascular: Patient's skin is warm and dry. Respiratory: Airway is patent Respiratory effort is even, unlabored, Respiratory pattern is regular, symmetrical. GI: No signs and/or symptoms were reported involving the gastrointestinal system. : EENT: Tympanic membrane clear on left ear and right ear Ear canal clear on left ear and right ear Pinna with no deformity noted on left ear w/ deformity noted on right ear Scabbed lesion noted to the right pinna. Derm: Skin is intact, Skin is pink, warm \\T\\ dry. Musculoskeletal: Circulation, motion, and sensation intact. Range of motion: intact in all extremities. 02:04 Reassessment: Patient appears in no apparent distress at this time. Patient and/or jb4 family updated on plan of care and expected duration. Pain level reassessed. Patient is alert, oriented x 3, equal unlabored respirations, skin warm/dry/pink. Pt verbalized understanding of d/c and follow up instructions. Vital Signs: 02:05 BP 145 / 84; Pulse 81; Resp 16; Pulse Ox 99% on R/A; jb4 ED Course: 01:07 Patient arrived in ED. cf2 01:20 Triage completed. sg 01:20 Arm band placed on. sg 01:31 Adriano Coates RN is Primary Nurse. jb4 01:41 Aurelio Antonio MD is Attending Physician. rn 01:47 Patient has correct armband on for positive identification. Bed in low position. Call jb4 light in reach. Side rails up X 1. 01:54 Lexus Lovett MD is Referral Physician. rn 02:05 No provider procedures requiring assistance completed. Patient did not have IV access jb4 during this emergency room visit. Administered Medications: No medications were administered Outcome: 01:54 Discharge ordered by . rn 02:05 Discharged to home ambulatory. jb4 02:05 Condition: stable 02:05 Discharge instructions given to patient, Instructed on discharge instructions, follow up and referral plans. Demonstrated understanding of instructions, follow-up care. 02:05 Patient left the ED. jb4 Signatures: Greg Booker RN RN sg Aurelio Antonio MD MD rn Bryson, James, RN RN jb4 Aislinn Peterson 2 Corrections: (The following items were deleted from the chart) 01:39 01:20 Chief complaint: sg 02:04 01:35 Pain: Denies pain. jb4 jb4
--- NOTE | 2020-02-10 01:55 | EDPHYS ---
Physician Documentation [facility] Name: Milton Alfaro Jr Age: 34 yrs Sex: Male : 1985 Arrival Date: 02/10/2020 Time: 01:07 Bed 7 Private MD: ED Physician Aurelio Antonio HPI: 02/09 01:48 This 34 yrs old Male presents to ER via Ambulatory with complaints of EAR rn PROBLEM. 01:48 The patient presents with a foreign body sensation. The complaints affect the right rn ear. Onset: The symptoms/episode began/occurred 3 month(s) ago. Modifying factors: The symptoms are alleviated by nothing, the symptoms are aggravated by touching. Severity of symptoms: At their worst the symptoms were mild in the emergency department the symptoms are unchanged. The patient has not experienced similar symptoms in the past. The patient has not recently seen a physician. Reports problem with right ear for about 3 months, feels like a mite or worm in his external ear, no trauma, has never seen anything there, + drug user. Keeps picking at skin, and feels like can grab part of it and pull, feels something moving on inside. No acute/gross changes. . Historical: - Allergies: 01:21 No Known Allergies; sg - PMHx: 01:21 Meth user; sg - PSHx: 01:21 right arm; sg - Immunization history:: Adult Immunizations up to date. - Social history:: Smoking status: Patient denies any tobacco usage or history of. - Family history:: not pertinent. - Hospitalizations: : No recent hospitalization is reported. ROS: 01:48 Constitutional: Negative for fever, chills, and weight loss, ENT: + right ear rn swelling/foreign body sensation Exam: 01:48 Constitutional: This is a well developed, well nourished patient who is awake, alert, rn and in no acute distress. Head/Face: Normocephalic, atraumatic. ENT: Right tragus with excoriations and thickened skin/scab from local tissue irritation, no foreign body/fluctuance/erythema/warmth. Vital Signs: 02:05 BP 145 / 84; Pulse 81; Resp 16; Pulse Ox 99% on R/A; jb4 MDM: 01:41 Patient medically screened. rn 01:48 Differential diagnosis: local irritation, cartilaginous hypertrophy, skin picking rn related to drug use. Data reviewed: vital signs, nurses notes, and as a result, I will discharge patient. Counseling: I had a detailed discussion with the patient and/or guardian regarding: the historical points, exam findings, and any diagnostic results supporting the discharge/admit diagnosis, the need for outpatient follow up, to return to the emergency department if symptoms worsen or persist or if there are any questions or concerns that arise at home. Special discussion: I discussed with the patient/guardian in detail that at this point there is no indication for admission to the hospital. It is understood, however, that if the symptoms persist or worsen the patient needs to return immediately for re-evaluation. Based on the history and exam findings, there is no indication for further emergent testing or inpatient evaluation. I discussed with the patient/guardian the need to see the ENT specialist for further evaluation of the symptoms. ED course: No fluctuance/erythema/warmth, no sign of foreign body, patient known drug user with skin problems and feels like something in his skin, no emergent finding today, no indication for incision or exploration, urged to f/u with ENT if continues. . Administered Medications: No medications were administered Disposition: 02/10/20 01:54 Discharged to Home. Impression: Person with feared health complaint in whom no diagnosis is made. - Condition is Stable. - Discharge Instructions: Rash. - Medication Reconciliation Form, Thank You Letter, Antibiotic Education, Prescription Opioid Use form. - Follow up: Lexus Lovett MD; When: As needed; Reason: Recheck today's complaints, Re-evaluation by your physician. - Problem is an ongoing problem. - Symptoms are unchanged. Signatures: Greg Booker RN RN Aurelio Antonio MD MD rn Bryson, James, RN RN jb4 Corrections: (The following items were deleted from the chart) 02:05 01:54 02/10/2020 01:54 Discharged to Home. Impression: Person with feared health jb4 complaint in whom no diagnosis is made. Condition is Stable. Forms are Medication Reconciliation Form, Thank You Letter, Antibiotic Education, Prescription Opioid Use. Follow up: Lexus Lovett; When: As needed; Reason: Recheck today's complaints, Re-evaluation by your physician. Problem is an ongoing problem. Symptoms are unchanged. rn
[2020-02-10 02:11] VITALS: BP 145/84; O2SAT 99
== END 2020-02-10 02:05 | disposition home or self-care (01) ==
LOC: ER 00:57
DX: H92.01 Otalgia, right ear (principal); Z71.1 Person with feared health complaint in whom no diagnosis is made
CPT/HCPCS: 99281

== ENCOUNTER 2020-12-12 17:57 | Emergency (ER) | payer SELFPAY ==
--- NOTE | 2020-12-12 19:41 | RAD REPORT ---
EXAM DESCRIPTION: Silas Single View12/12/2020 7:35 pm CLINICAL HISTORY: Chest pain COMPARISON: none FINDINGS: The lungs appear clear of acute infiltrate. The heart is normal size IMPRESSION: No acute abnormalities displayed
--- NOTE | 2020-12-12 20:03 | ER ---
Nurse's Notes [facility] Name: Milton Alfaro Jr Age: 35 yrs Sex: Male : 1985 Arrival Date: 12/12/2020 Time: 18:18 Bed 5 Private MD: Diagnosis: Other chest pain Presentation: 12/12 18:19 Chief complaint: Patient states: Started acting out at [employer], him and his tabitha1 started verbally fighting. [employer] put him under arrest, and he suddenly had CP and N/V. Sent in for eval. Coronavirus screen: Client denies travel out of the [place] in the last 14 days. At this time, the client does not indicate any symptoms associated with coronavirus-19. Ebola Screen: Patient denies travel to an Ebola-affected area in the 21 days before illness onset. Initial Sepsis Screen: Does the patient meet any 2 criteria? HR > 90 bpm. No. Patient's initial sepsis screen is negative. Does the patient have a suspected source of infection? Yes: Other: chest pain; N/V. Risk Assessment: Do you want to hurt yourself or someone else? Patient reports no desire to harm self or others. Onset of symptoms was December 12, 2020. 18:19 Method Of Arrival: EMS ll1 18:19 Acuity: SANDY 2 ll1 18:21 Chief complaint: EMS states: Given aspirin 325 mg PO en route. States he takes Rhino ll1 herbal supplement for erectile dysfunction, so they did not give him any nitro. Glucose 95, HR was 130, vitals otherwise stable for EMS. Ketamine 200 MG IM given en route. No IV access. 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 - Social history:: Smoking status: unknown. Assessment: 20:04 General: General: patient refused treatment. provider spoke to the patient and asked mg2 for his orientation and he is orientedx3. discharged. . ED Course: 18:18 Patient arrived in ED. ll1 18:21 Triage completed. ll1 18:23 Arm band placed on. ll1 18:41 Ryan Cadet PA is PHCP. cp 18:41 Tereso Ge MD is Attending Physician. cp 19:28 Aurelio Antonio MD is Attending Physician. cp 19:34 XRAY Chest (1 view) In Process Unspecified. EDMS Administered Medications: No medications were administered Outcome: 20:02 Discharge ordered by MD. cp 20:10 Discharged to home ambulatory. mg2 20:10 Condition: stable 20:10 Discharge instructions given to patient, Instructed on discharge instructions. 20:10 Patient left the ED. mg2 Signatures: Dispatcher [employer] EDMS Ryan Cadet PA PA cp Miguel Reyes, RN RN mg2 Kamron Patton RN RN ll1 Corrections: (The following items were deleted from the chart) 20:10 20:04 General: mg2 mg2
--- NOTE | 2020-12-12 20:03 | EDPHYS ---
Physician Documentation [facility] Name: Milton Alfaro Jr Age: 35 yrs Sex: Male : 1985 Arrival Date: 12/12/2020 Time: 18:18 Bed 5 Private MD: ED Physician Aurelio Antonio HPI: 12/12 19:00 This 35 yrs old Male presents to ER via EMS with complaints of Chest Pain > cp 32 y/o. 19:00 EMS care prior to arrival includes: given Ketamine [employer] REPRESENTATIVE due to be uncooperative and cp combative. 19:00 Patient was reportedly involved in an argument with significant other when police were cp called. Patient reportedly starting complaining of chest pain. EMS was called and patient became "combative". 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 - Social history:: Smoking status: unknown. ROS: 19:05 Constitutional: Negative for fever. cp 19:05 Cardiovascular: Positive for chest pain. cp 19:05 Unable to obtain ROS due to patient being uncooperative. Exam: 19:10 Constitutional: The patient appears in no acute distress, alert, awake, cp non-diaphoretic, non-toxic, well developed, well nourished. 19:10 Head/Face: Normocephalic, atraumatic. cp 19:10 Eyes: Periorbital structures: appear normal, Pupils: pinpoint, bilaterally, Conjunctiva: normal, no exudate, no injection, Sclera: no appreciated abnormality, Lids and lashes: appear normal, bilaterally. 19:10 ENT: External ear(s): are unremarkable, Nose: is normal, Mouth: Lips: dry, Oral mucosa: moist, Posterior pharynx: Airway: no evidence of obstruction, patent. 19:10 Neck: ROM/movement: is normal, is supple, no meningismus, no nuchal rigidity. 19:10 Chest/axilla: Inspection: normal, Palpation: is normal, no crepitus, no tenderness. 19:10 Cardiovascular: Rate: normal, Rhythm: regular, Edema: is not appreciated, JVD: is not appreciated. 19:10 Respiratory: the patient does not display signs of respiratory distress, Respirations: normal, no use of accessory muscles, no retractions, labored breathing, is not present, Breath sounds: are clear throughout, no decreased breath sounds. 19:10 Abdomen/GI: Inspection: abdomen appears normal, Palpation: abdomen is soft and non-tender, in all quadrants. 19:10 Neuro: Orientation: to person, Mentation: confused, Motor: moves all fours. 19:28 ECG was reviewed by the Attending Physician. cp MDM: 18:49 Patient medically screened. cp 19:00 Differential diagnosis: abnormal EKG, acute myocardial infarction, pneumonia, cp pneumothorax, thoracic aortic disection, unstable angina. 20:02 Data reviewed: vital signs, nurses notes, EKG, radiologic studies, plain films. cp 20:02 Test interpretation: by ED physician or midlevel provider: ECG, plain radiologic cp studies. ED course: Patient now alert times 3. Refuses blood draw. EKG reviewed and negative for STEMI. Nausea improved and no complaints of chest pain. Patient requesting discharge. 12/12 18:51 Order name: XRAY Chest (1 view); Complete Time: 20:01 cp 12/12 18:51 Order name: EKG; Complete Time: 18:52 cp 12/12 18:51 Order name: EKG - Nurse/Tech; Complete Time: 19:49 cp 12/12 18:51 Order name: O2 Per Protocol; Complete Time: 19:49 cp 12/12 18:51 Order name: O2 Sat Monitoring; Complete Time: 19:49 cp EC:28 Rate is 75 beats/min. Rhythm is regular. TN interval is normal. QRS interval is normal. cp QT interval is normal. T waves are Inverted in lead aVR. Interpreted by me. Reviewed by me. Administered Medications: No medications were administered Disposition: 20:05 Chart complete. cp 22:57 Co-signature as Attending Physician, Aurelio Antonio MD. rn Disposition: 12/12/20 20:02 Discharged to Home. Impression: Other chest pain. - Condition is Stable. - Discharge Instructions: Nonspecific Chest Pain. - Medication Reconciliation Form, Thank You Letter, Antibiotic Education, Prescription Opioid Use form. - Follow up: Private Physician; When: 1 - 2 days; Reason: Recheck today's complaints. - Problem is new. - Symptoms have improved. Signatures: Dispatcher [employer] EDMS Aurelio Antonio MD MD rn Ryan Cadet PA PA cp Miguel Reyes RN RN mg2 Kamron Patton RN RN ll1 Corrections: (The following items were deleted from the chart) 20:10 20:02 12/12/2020 20:02 Discharged to Home. Impression: Other chest pain. Condition is mg2 Stable. Forms are Medication Reconciliation Form, Thank You Letter, Antibiotic Education, Prescription Opioid Use. Follow up: Private Physician; When: 1 - 2 days; Reason: Recheck today's complaints. Problem is new. Symptoms have improved. cp
--- NOTE | 2020-12-13 07:35 | EKG ---
Test Date: 2020-12-12 Test Time: 19:23:51 Director Of Agronomy: SABINA MEASUREMENT RESULTS: Intervals: Rate: 75 GA: 120 QRSD: 84 QT: 372 QTc: 415 [place]: P: 58 GA: 120 QRS: 71 T: 38 INTERPRETIVE STATEMENTS: Normal sinus rhythm Normal ECG No previous ECG available for comparison Electronically Signed On 12-13-20 07:34:32 CDT by Hao Casanova
== END 2020-12-12 20:10 | disposition home or self-care (01) ==
LOC: ER 17:57
DX: R07.89 Other chest pain (principal)
CPT/HCPCS: 71045; 93005; 99283